=== PATIENT | female | born 1935 | race Caucasian/White ===

== ENCOUNTER → 2017-05-03 | Outpatient (CLI) | payer MEDICARE, OTHER ==
[~2017-05-03] VITALS: Ht 162.6 cm; Wt 90.7 kg
[~2017-05-03] MED LIST: ASPI-482 PO; LEVO112T4 PO; PROP15TA PO; REGADENOSON 0.4 MG/5 ML DISP.SYRIN. IV ONE; RIVA20TA2 PO; SIMV10TA3 PO
--- NOTE | 2017-05-03 10:29 | CARD ---
APPROVED REPORT EXAM: Two-dimensional and M-mode echocardiogram with Doppler and color Doppler. Other Information Quality : Good Rhythm : Atrial Fibrillation INDICATION Atrial Fibrillation 2D DIMENSIONS RVDd3.0 (2.9-3.5cm)Left Atrium(2D)3.9 (1.6-4.0cm) IVSd1.1 (0.7-1.1cm)Aortic Root(2D)3.1 (2.0-3.7cm) LVDd4.1 (3.9-5.9cm)LVOT Diameter2.1 (1.8-2.4cm) PWd1.1 (0.7-1.1cm)LVDs3.1 (2.5-4.0cm) FS (%) 24.9 %SV37.7 ml Aortic Valve AoV Peak Murray.115.4cm/sAoV VTI24.9cm AO Peak GR.5.3mmHgLVOT Peak Murray.67.8cm/s AO Mean GR.3mmHgAVA (VMAX)2.12cm2 Pulmonary Valve PV Peak Utpiccmj45.6cm/s Tricuspid Valve TR P. Ekcsllgn339mq/sTR Peak Gr.34mmHg Pulmonary Vein S1 Hmlhtllk61.8cm/s LEFT VENTRICLE The left ventricle is normal size. There is mild concentric left ventricular hypertrophy. The left ve ntricular systolic function is normal. The Ejection Fraction is 55%. Tissue Doppler assessment sugges ts moderate left ventricular diastolic dysfunction. RIGHT VENTRICLE The right ventricle is normal size. There is normal right ventricular wall thickness. The right ventr icular systolic function is normal. ATRIA The left atrium is mildly dilated. The right atrium size is normal. The interatrial septum is intact with no evidence for an atrial septal defect or patent foramen ovale as noted on 2-D or Doppler imagi ng. AORTIC VALVE The aortic valve is mildly sclerotic. The aortic valve is trileaflet. Doppler and Color Flow revealed no significant aortic regurgitation. There is no significant aortic valvular stenosis. MITRAL VALVE The mitral valve leaflets are thickened. Mild posterior mitral valve leaflet prolapse is present. The re is no mitral valve stenosis. Doppler and Color Flow revealed mild mitral regurgitation. TRICUSPID VALVE Doppler and Color Flow revealed mild tricuspid regurgitation. The pulmonary artery systolic pressure is estimated at 37 mmHg. There is mild pulmonary hypertension. PULMONIC VALVE Doppler and Color Flow revealed mild pulmonic valvular regurgitation. There is no pulmonic valvular s tenosis. GREAT VESSELS The aortic root is normal in size. The ascending aorta is normal in size. The pulmonary artery is nor mal. The IVC is normal in size and collapses >50% with inspiration. PERICARDIAL EFFUSION There is no evidence of significant pericardial effusion. Critical Notification Critical Value: No <Conclusion> The left ventricular systolic function is normal. The Ejection Fraction is 55%. The left atrium is mildly dilated. Mild posterior mitral valve leaflet prolapse is present. Mild mitral regurgitation. Mild tricuspid regurgitation. The pulmonary artery systolic pressure is estimated at 37 mmHg. There is no evidence of significant pericardial effusion.
--- NOTE | 2017-05-03 12:42 | RAD ---
APPROVED REPORT Test Type: Pharmacological Stress Nurse/Tech: Leidy Reyes R.N. Test Indications: afib Cardiac History: afib Medications: propranolol, asa, xarelto, simvastatin, levothyroxine Medical History: see ehr Resting ECG: afib Resting Heart Rate: 107 bpm Resting Blood Pressure: 136/83mmHg Pretest Chest Pain: No chest pain Nurse/Tech Notes lungs cta, heart tones irregular, good radial pulse Consent: The procedure was explained to the patient in lay terms. Informed consent was witnessed. Reynaldo eout was entered into [employer]. History and Stress Test performed by Leidy Reyes R.N. Pharm. Details Pharmacologic stress testing was performed using 0.4mg per 5ml of regadenoson given intravenously ove r 7-10 seconds. Stress Symptoms No chest pain or symptoms. POST EXERCISE Reason for Termination: Infusion complete Target HR: No Max HR: 136 bpm Max Blood Pressure: 137/73mmHg Chest Pain: No. Arrhythmia: Yes. afib cont throughout ST Change: No. INTERPRETATION Stress EKG Conclusion: No evidence of stress induced EKG changes. Imaging Protocol IMAGE PROTOCOL: Rest Tc-99m/stress Tc-99m 1 day Rest: Stress: Viability: Radiopharm.Tc99m LontktkiaRc34z Sestamibi Kexq88dZo 33mCi Duration 15min. 10min. Img Date 05/03/2017 05/03/2017 Inj-Img Diue34spj. 60min. Rest Admin Site:IV - Left AntecubitalAdministrator:Mariana Ann RT (R)(N) Stress Admin Site: IV - Left AntecubitalAdministrator: ABRAHAM HoyosTCSera, ARRT (R)(N) STRESS DATA End Diast. Vol.62.0mlAv. Heart Rate95.0bpm End Syst. Vol.26.0mlCO Index BSA0.0L/min Myocardial Aguu826.0gEject. Tertjavd38.0% Stress Rates Pk. Fill Rate3.41EDV/secLVtime Pk. Fill 165.25msec Pk. Empty Rate3.28ESV/secLVtime Pk. Eject93.85msec 11/20 Pk. Fill0.76EDV/sec Stress Scores Regional WT2.00Summed WT18.00 Regional WM0.00Summed WM5.00 The rest and stress images show normal perfusion, normal contraction and thickening. LV Perf. Quant 17 Seg. SSS2.00 17 Seg. SRS0.00 17 Seg. SDS2.00 Stress Defect Extent (% LAD)0.00Rest Defect Extent (% LAD)0.00Rev. Defect Extent (% LAD)0.00 Stress Defect Extent (% LCX) 7.50Rest Defect Extent (% LCX)0.00Rev. Defect Extent (% LCX)1.30 Stress Defect Extent (% RCA)0.00Rest Defect Extent (% RCA)0.00Rev. Defect Extent (% RCA)0.00 Stress Defect Extent (% THEA)1.30Rest Defect Extent (% THEA)0.00Rev. Defect Extent (% THEA)0.20 Other Information Quality:Good Risk Assessment: Low Risk Conclusion 1. No evidence of stress induced EKG changes. 2. Normal perfusion at stress/rest. 3. Low risk study. EF 58%
== END | disposition home or self-care (01) ==
LOC: NM 08:16
PROVIDERS: ATTEND Internal Medicine Cardiovascular Disease
DX: I48.91 Unspecified atrial fibrillation (principal); I08.1 Rheumatic disorders of both mitral and tricuspid valves; I27.2 Other secondary pulmonary hypertension
CPT/HCPCS: 78452; 93017; 93306; 96374; 96375; 96376; A9500; J2785

== ENCOUNTER → 2017-08-05 | Outpatient (CLI) | payer MEDICARE, OTHER ==
[~2017-08-05] MED LIST changes: -REGADENOSON 0.4 MG/5 ML DISP.SYRIN. IV ONE
--- NOTE | 2017-08-05 17:05 | RESP ---
DATE OF SERVICE: 08/05/2017 NAME OF STUDY: PFT. ATTENDING PHYSICIAN: Dr. Fong. DATE OF STUDY: 08/05/2017. FINDINGS: The patient's FVC was 1.9, which is 73% predicted; FEV1 1.20, which is 62% predicted. The FEV1/FVC ratio was reduced. There was 13% improvement in FEV1 post-bronchodilator, but not significant improvement with FVC or FEV1/FVC ratio. Lung volumes showed increased total lung capacity, 178% predicted; residual volume 308% predicted. Diffusion capacity normal. IMPRESSION: 1. Mild obstructive airway disease. 2. No significant response to bronchodilators. 3. Lung volumes consistent with hyperinflation and air trapping. 4. Normal diffusion capacity. JOSE DELGADO MD DR: BEBE/miguel JOB#: [id number] / [id number]
== END | disposition home or self-care (01) ==
LOC: PF 08:45
PROVIDERS: ATTEND Internal Medicine Cardiovascular Disease
DX: J98.8 Other specified respiratory disorders (principal)
CPT/HCPCS: 94060; 94729

== ENCOUNTER 2019-02-11 16:06 | Inpatient (IN) | payer MEDICARE, OTHER ==
[~2019-02-11] VITALS: Ht 162.6 cm; Wt 88.7 kg
[2019-02-11 17:11] LABS: BASO % 1 % (0-3); EOS # 0.1 x10^3/uL (0.0-0.7); EOS % 2 % (0-3); HEMATOCRIT 42.1 % (36.0-47.0); HEMOGLOBIN 14.1 g/dL (12.0-15.5); LYMPH # 1.6 x10^3/uL (1.0-4.8); LYMPH % 24 % (24-48); MEAN CORPUSCULAR HEMOGLOBIN 32 pg (25-35); MEAN CORPUSCULAR HGB CONC 33 g/dL (31-37); MEAN CORPUSCULAR VOLUME 97 fL (79-100); MONO # 0.6 x10^3/uL (0.0-1.1); MONO % 9 % (0-9); NEUT # 4.2 x10^3uL (1.8-7.7); NEUT % 64 % (31-73); PLATELET COUNT 142 x10^3/uL (140-400); RED BLOOD COUNT 4.34 x10^6/uL (3.50-5.40); RED CELL DISTRIBUTION WIDTH 14.3 % (11.5-14.5); WHITE BLOOD COUNT 6.6 x10^3/uL (4.0-11.0)
[2019-02-11 17:24] LABS: CALCIUM 8.7 mg/dL (8.5-10.1); CREATININE 1.1 mg/dL (0.6-1.0); GFR 47.3; POTASSIUM 4.1 mmol/L (3.5-5.1)
[2019-02-11 17:30] LABS: ALBUMIN/GLOBULIN RATIO 0.8 (1.0-1.7); MAGNESIUM 2.1 mg/dL (1.8-2.4); TOTAL BILIRUBIN 0.5 mg/dL (0.2-1.0)
[2019-02-11 17:34] LABS: INFLUENZA A PATIENT POSITIVE (NEGATIVE); INFLUENZA B PATIENT NEGATIVE (NEGATIVE)
[2019-02-11] MEDS: OSELTAMIVIR 30 MG CAPSULE PO SCH (17:44)
[2019-02-11 18:02] LABS: BILIRUBIN,URINE NEGATIVE (NEG); CLARITY,URINE CLEAR; COLOR,URINE YELLOW; NITRITE,URINE NEGATIVE (NEG); PH,URINE 5.5; PROTEIN,URINE NEGATIVE (NEG-TRACE); UROBILINOGEN,URINE 0.2 mg/dL (0.2 mg/dL)
[2019-02-11 18:15] LABS: BACTERIA,URINE FEW /HPF (0-FEW); RBC,URINE OCC /HPF (0-2); SQUAMOUS EPITHELIAL CELL,UR FEW /LPF
[2019-02-11] MEDS ORDERED: cefTRIAXone IV Push 1 GM VIAL. IVP ONE (19:30)
[2019-02-11] MEDS ORDERED: ACETAMINOPHEN 325 MG TABLET. PO PRN ×2 (19:30→21:00)
[2019-02-11 19:43] VITALS: BP 143/86
--- NOTE | 2019-02-11 19:52 | PHYS DOC ---
Past Medical History Past Medical History: A-Fib, High Cholesterol, Hypothyroid, Other Additional Past Medical Histor: OSTEOPENIA Past Surgical History: Cholecystectomy, Hysterectomy Alcohol Use: None Drug Use: None Adult General Chief Complaint Chief Complaint: SHORTNESS OF BREATH HPI HPI 83-year-old female presents to ER via POV with complaints of shortness of air for the past 2 days. Patient states she has had cold-like symptoms since Saturday and has been gradually becoming more weak. She reports her appetite has been down and she has had less fluid intake. Patient denies fever. Patient was sent to the ER by her primary care physician's office as she had been there getting evaluated. They had taken a chest x-ray and told patient had concerns for questionable CHF-they sent a CD of the chest x-ray which was taken to radiology for possible upload of images. Patient denies history of this. Patient states she does have history of A. fib and is on daily Xarelto. Patient denies any chest pain or palpitations. Patient reports she has chronic lower extremity swelling denies acute changes. Patient denies urinary symptoms. Patient denies recent falls or injury. She denies any recent travel. Review of Systems Review of Systems Constitutional: Denies fever or chills. Reports gen. fatigue/weakness Eyes: Denies change in visual acuity, redness, or eye pain [] HENT: Reports sore throat and sinus congestion Respiratory: Reports nonprod. cough and SOA Cardiovascular: Denies chest pain or palpitations GI: Denies abdominal pain, nausea, vomiting, bloody stools or diarrhea [] : Denies dysuria or hematuria [] Musculoskeletal: Denies back/neck pain or joint pain [] Integument: Denies rash or skin lesions [] Neurologic: Denies headache, focal weakness or sensory changes [] Endocrine: Denies polyuria or polydipsia [] All other systems were reviewed and found to be within normal limits, except as documented in this note. Allergies Allergies Allergies Coded Allergies Type Severity Reaction Last Updated Verified No Known Drug Allergies 05/03/17 No Physical Exam Physical Exam Constitutional: Well developed, well nourished, no acute distress, non-toxic appearance. Fatigued appearance. Clear speech HENT: Normocephalic, atraumatic, bilateral ears normal, mucous membranes- no pharyngeal swelling mild erythema- uvula midline, no oral exudates, nose normal. [] Eyes: Pupils equal, conjunctiva normal, no discharge. [] Neck: Normal range of motion, no tenderness, supple, no stridor. Trachea midline Cardiovascular:Heart rate regular rhythm, no murmur [] Lungs & Thorax: Expiratory wheezing rt upper lobe and in upper airway- diminished in bases. Resp. equal/nonlabored. Speaking in full sentences Abdomen: Bowel sounds normal, soft/obese- no rigidity/distention, no tenderness , no masses, no pulsatile masses. [] Skin: Warm, dry, no erythema, no rash. [] Back: No tenderness, no CVA tenderness. [] Extremities: No tenderness, no cyanosis, no clubbing, ROM intact, 2+ bilat. LE edema without pitting- no calf tenderness bilat. w/symmetric size Neurologic: Alert and oriented X 3, normal motor function, normal sensory function, no focal deficits noted. [] Psychologic: Affect normal, judgement normal, mood normal. [] Current Patient Data Vital Signs Vital Signs Date Time Temp Pulse Resp B/P (MAP) Pulse Ox O2 Delivery O2 Flow Rate FiO2 02/11/19 17:11 104 149/88 (108) 94 Room Air 02/11/19 16:35 98.2 22 98.2 Lab Values Laboratory Tests Test 02/11/19 16:40 02/11/19 17:00 White Blood Count 6.6 x10^3/uL (4.0-11.0) Red Blood Count 4.34 x10^6/uL (3.50-5.40) Hemoglobin 14.1 g/dL (12.0-15.5) Hematocrit 42.1 % (36.0-47.0) Mean Corpuscular Volume 97 fL (79-100) Mean Corpuscular Hemoglobin 32 pg (25-35) Mean Corpuscular Hemoglobin Concent 33 g/dL (31-37) Red Cell Distribution Width 14.3 % (11.5-14.5) Platelet Count 142 x10^3/uL (140-400) Neutrophils (%) (Auto) 64 % (31-73) Lymphocytes (%) (Auto) 24 % (24-48) Monocytes (%) (Auto) 9 % (0-9) Eosinophils (%) (Auto) 2 % (0-3) Basophils (%) (Auto) 1 % (0-3) Neutrophils # (Auto) 4.2 x10^3uL (1.8-7.7) Lymphocytes # (Auto) 1.6 x10^3/uL (1.0-4.8) Monocytes # (Auto) 0.6 x10^3/uL (0.0-1.1) Eosinophils # (Auto) 0.1 x10^3/uL (0.0-0.7) Basophils # (Auto) 0.0 x10^3/uL (0.0-0.2) Sodium Level 140 mmol/L (136-145) Potassium Level 4.1 mmol/L (3.5-5.1) Chloride Level 103 mmol/L (98-107) Carbon Dioxide Level 30 mmol/L (21-32) Anion Gap 7 (6-14) Blood Urea Nitrogen 14 mg/dL (7-20) Creatinine 1.1 mg/dL (0.6-1.0) H Estimated GFR (Cockcroft-Gault) 47.3 BUN/Creatinine Ratio 13 (6-20) Glucose Level 111 mg/dL (70-99) H Lactic Acid Level 0.9 mmol/L (0.4-2.0) Calcium Level 8.7 mg/dL (8.5-10.1) Magnesium Level 2.1 mg/dL (1.8-2.4) Total Bilirubin 0.5 mg/dL (0.2-1.0) Aspartate Amino Transferase (AST) 15 U/L (15-37) Alanine Aminotransferase (ALT) 14 U/L (14-59) Alkaline Phosphatase 74 U/L (46-116) Troponin I Quantitative < 0.017 ng/mL (0.000-0.055) RU-Xhv-F-Type Natriuretic Peptide 1959 pg/mL (0-449) H Total Protein 7.0 g/dL (6.4-8.2) Albumin 3.0 g/dL (3.4-5.0) L Albumin/Globulin Ratio 0.8 (1.0-1.7) L Influenza Type A Antigen Positive (NEGATIVE) Influenza Type B Antigen Negative (NEGATIVE) Laboratory Tests 02/11/19 16:40 Laboratory Tests 02/11/19 16:40 EKG EKG EKG obtained 02/11/19 at 1649 Interpreted by ER physician AFib RVR Nonspec. ST/T wave changes No STEMI Radiology/Procedures Radiology/Procedures [] Course & Med Decision Making Course & Med Decision Making Pertinent Labs and Imaging studies reviewed. (See chart for details) Dr. Gama, ER physician viewed patient's chest x-ray which was uploaded with no obvious findings for infiltrate or congestion. This was discussed with pt and her son. Pt had positive Flu A test so she was started on Tamiflu. EKG with no acute ST elevation/STEMI and troponin was <0.017. Patient was given 500 mL normal saline while in the ER. Patient initial heart rate was elevated however at time of admission heart rate was down to 85-90 remained irregular. Will admit to hospitalist for further care and monitoring to med/tele floor. Pt remains fatigued in appearance at time of discussion on admission but is in no visible distress. 1710: Spoke with hospitalist Dr. Griffin and discussed patient's case and admission plan. UA results with mod. leuks and so dose of IV Rocephin was ordered. Dragon Disclaimer Dragon Disclaimer This electronic medical record was generated, in whole or in part, using a voice recognition dictation system. Departure Departure Impression: Primary Impression: Shortness of breath Additional Impressions: Influenza A Weakness UTI (urinary tract infection) Disposition: ADMITTED INPATIENT Admitting Physician: Antonio Griffin Condition: STABLE Referrals: ANTHONY GUIDRY MD (PCP) Scripts Cetirizine Hcl (CETIRIZINE HCL) 10 Mg Tablet 1 TAB PO DAILY for congestion, #7 TAB 5 Refills Prov: VENKATESH MCKENNA MD 02/12/19 Fluticasone Propionate (Flonase Allergy Relief) 9.9 Ml [place].susp 2 SPRAYS NS DAILY for congestion for 7 Days, BOTTLE Prov: VENKATESH MCKENNA MD 02/12/19 Guaifenesin (MUCINEX) 600 Mg Tablet.er 600 MG PO BID for cough MDD 1, #14 TAB.SR Prov: VENKATESH MCKENNA MD 02/12/19 Oseltamivir Phosphate (TAMIFLU) 30 Mg Capsule 30 MG PO BID for flu A MDD 1, #10 CAP Prov: VENKATESH MCKENNA MD 02/12/19 Problem Qualifiers MYCHAL FU APRN Feb 11, 2019 19:52
[2019-02-11] MEDS ORDERED: ENOXAPARIN 40 MG/0.4 ML SYRINGE. SQ SCH (20:00)
[2019-02-11] MEDS ORDERED: CALC625T12 PO (20:55)
[2019-02-11] MEDS ORDERED: ACET325T9 PO (20:55)
[2019-02-11] MEDS ORDERED: PROP120C48 PO (20:55)
[2019-02-11] MEDS ORDERED: CHOL500051 PO (20:55)
[2019-02-11] MEDS ORDERED: SIMVASTATIN 10 MG TABLET PO SCH (21:00)
[2019-02-11] MEDS ORDERED: RIVAROXABAN 15 MG TABLET. PO SCH (21:30)
--- NOTE | 2019-02-11 21:42 | HP ---
ADMIT DATE: 02/11/2019 CHIEF COMPLAINT: Shortness of breath. HISTORY OF PRESENT ILLNESS: The patient is a pleasant 83-year-old female who presents to the ER with shortness of breath, been occurring for several days. She has associated weakness and cold-like symptoms with achiness, becoming more weak. Her appetite is down. She tried taking some home meds that did not seem to work. She was sent to the ER by her primary care doctor's office because they have taken a chest x-ray and were concerning she could have some heart failure as well. While in the ER, we checked her for flu and she is positive for influenza A. She also has a UTI with moderate leukocyte esterase on her urinalysis. I discussed the case with ER physician and we are going to admit the patient and give her fluids and Tamiflu and IV antibiotics. PAST MEDICAL HISTORY: Chronic anticoagulation, AFib, hyperlipidemia, hypothyroidism, osteopenia, cholecystectomy and hysterectomy. ALLERGIES: None. FAMILY HISTORY: Hypertension. SOCIAL HISTORY: She does not drink, smoke or take drugs. She is retired. MEDICATIONS: Reviewed, please refer to the MRAD. She is on 5 home medications including Xarelto, simvastatin, aspirin, Synthroid and fayw-tzb-lcvfuem meds. REVIEW OF SYSTEMS: GENERAL: No history of weight change, weakness or fevers. SKIN: No bruising, hair changes or rashes. EYES: No blurred, double or loss of vision. NOSE AND THROAT: No history of nosebleeds, hoarseness or sore throat. HEART: No history of palpitations, chest pain or shortness of breath on exertion. PULMONARY: She complains of shortness of breath. GASTROINTESTINAL: Denies changes in appetite, nausea, vomiting, diarrhea or constipation. GENITOURINARY: No history of frequency, urgency, hesitancy or nocturia. NEUROLOGIC: Denies history of numbness, tingling, tremor or weakness. PSYCHIATRIC: No history of panic, anxiety or depression. ENDOCRINE: No history of heat or cold intolerance, polyuria or polydipsia. EXTREMITIES: Denies muscle weakness, joint pain, pain on walking or stiffness. PHYSICAL EXAMINATION: VITAL SIGNS: Temperature is afebrile, pulse 98, respirations 18 and blood pressure 143/86. GENERAL: She is alert, cooperative and very weak. HEART: Normal S1 and S2. LUNGS: Slight crackles. ABDOMEN: Soft and obese. EXTREMITIES: 1+ edema. SKIN: No rashes. ENDOCRINE: No thyromegaly. LYMPHATICS: No cervical nodes. HEMATOPOIETIC: No bruising. PSYCHIATRIC: She is stable. LABORATORY DATA: Hematology is normal. Electrolytes are normal. BNP is high as 1959. RADIOLOGICAL DATA: Chest x-ray is pending. ASSESSMENT AND PLAN: Influenza and probable rphog-kl-mncffrm systolic and diastolic heart failure and urinary tract infection. The patient has been admitted. We will start Tamiflu and IV Levaquin and IV fluids. Consult Cardiology. Home medications. Deep venous thrombosis prophylaxis, PHYSICAL therapy, occupational therapy and frequent labs. Prognosis is guarded. JOELLE BURR DO DR: LORENA/miguel JOB#: [id number] / [id number]
[2019-02-11] MEDS: IPRATRPIUM/ALBUTEROL 0.5/2.5MG 3 ML NEBU. NEB SCH (22:17)
[2019-02-11] MEDS: BENZONATATE 100 MG CAPSULE. PO SCH (22:44)
[2019-02-11 23:03] VITALS: BP 127/85
[2019-02-12 03:11] VITALS: BP 134/72
[2019-02-12 05:22] LABS: BASO % 1 % (0-3); EOS # 0.1 x10^3/uL (0.0-0.7); EOS % 2 % (0-3); HEMATOCRIT 38.1 % (36.0-47.0); HEMOGLOBIN 12.8 g/dL (12.0-15.5); LYMPH # 1.3 x10^3/uL (1.0-4.8); LYMPH % 27 % (24-48); MEAN CORPUSCULAR HEMOGLOBIN 32 pg (25-35); MEAN CORPUSCULAR HGB CONC 34 g/dL (31-37); MEAN CORPUSCULAR VOLUME 97 fL (79-100); MONO # 0.5 x10^3/uL (0.0-1.1); MONO % 10 % (0-9); NEUT % 62 % (31-73); PLATELET COUNT 128 x10^3/uL (140-400); RED BLOOD COUNT 3.94 x10^6/uL (3.50-5.40); RED CELL DISTRIBUTION WIDTH 14.3 % (11.5-14.5); WHITE BLOOD COUNT 4.9 x10^3/uL (4.0-11.0)
[2019-02-12 07:00] VITALS: BP 129/73
[2019-02-12] MEDS ORDERED: LEVOTHYROXINE 112 MCG TABLET PO SCH (07:00)
[2019-02-12] MEDS: IPRATRPIUM/ALBUTEROL 0.5/2.5MG 3 ML NEBU. NEB SCH ×3 (08:15→16:59)
[2019-02-12] MEDS ORDERED: ONDANSETRON ODT 4 MG TAB.RAPDIS. PO PRN (08:45)
[2019-02-12] MEDS ORDERED: ONDANSETRON PF 4 MG/2 ML VIAL. IV PRN (08:45)
[2019-02-12] MEDS ORDERED: ACETAMINOPHEN 500 MG TABLET PO PRN (08:45)
[2019-02-12] MEDS ORDERED: CALCIUM POLYCARBOPHIL 625 MG TABLET PO SCH (09:00)
[2019-02-12] MEDS ORDERED: PROPRANOLOL ER 80 MG CAP.ER.24H. PO SCH (09:00)
[2019-02-12] MEDS ORDERED: CHOLECALCIFEROL (VITAMIN D3) 5,000 UNIT CAPSULE PO SCH (09:00)
--- NOTE | 2019-02-12 09:13 | EKG ---
[facility] [address] [place] [address] Test Date: 2019-02-11 Test Time: 16:49:04 Pat Name: KAYLYN TOMAS Department: Room: 536 1 Gender: Nightman: : 1935 Requested By: MYCHAL FU Order Number: [id number] Reading MD: Gustavo Fong MD Measurements Intervals [place] Rate: P: SD: QRS: QRSD: T: QT: QTc: Interpretive Statements ATRIAL FIBRILLATION WITH RVR NON-SPECIFIC ST/T CHANGES Electronically Signed On 02-12-2019 15:14:26 CDT by Gustavo Fong MD
[2019-02-12] MEDS: OSELTAMIVIR 30 MG CAPSULE PO SCH (09:23)
--- NOTE | 2019-02-12 09:36 | NUR ---
IP: Pt is influenza + requiring droplet precautions for 5 days and 24 hours without a fever, whichever is longest.
[2019-02-12] MEDS: BENZONATATE 100 MG CAPSULE. PO SCH ×2 (09:50→13:30)
[2019-02-12 11:00] VITALS: BP 130/67
--- NOTE | 2019-02-12 11:03 | PDOC ---
Infectious Disease Note Vital Signs: Vital Signs Vital Signs Date Time Temp Pulse Resp B/P (MAP) Pulse Ox O2 Delivery O2 Flow Rate FiO2 02/12/19 09:26 87 129/73 02/12/19 08:15 97 Room Air 02/12/19 07:00 98.8 20 98.8 Medications: Inpatient Meds: Current Medications Medications (Trade) Dose Ordered Sig/Radha Start Time Stop Time Status Last Admin Dose Admin Acetaminophen (Tylenol) 500 mg PRN Q6HRS PRN 02/12/19 08:45 Albuterol/ Ipratropium (Duoneb) 3 ml RTQID 02/11/19 20:00 02/12/19 19:59 02/12/19 08:15 3 ML Benzonatate (Tessalon Perle) 100 mg [id number] 02/11/19 22:30 02/12/19 09:50 100 MG Calcium Polycarbophil (Fibercon) 625 mg DAILY 02/12/19 09:00 02/12/19 09:24 625 MG Ceftriaxone Sodium (Rocephin) 1 gm 1X ONCE 02/11/19 19:30 02/11/19 19:31 UNV Enoxaparin Sodium (Lovenox 40mg Syringe) 40 mg Q24H 02/11/19 20:00 02/11/19 21:01 DC Guaifenesin (Mucinex) 600 mg BID 02/11/19 22:30 02/12/19 09:23 600 MG Levofloxacin/ Dextrose 50 ml @ 50 mls/hr Q24H 02/12/19 20:00 Levothyroxine Sodium (Synthroid) 112 mcg DAILY07 02/12/19 07:00 02/12/19 06:43 112 MCG Ondansetron HCl (Zofran Odt) 4 mg PRN Q6HRS PRN 02/12/19 08:45 Ondansetron HCl (Zofran) 4 mg PRN Q6HRS PRN 02/12/19 08:45 Oseltamivir Phosphate (Tamiflu) 30 mg BID 02/11/19 18:00 02/16/19 17:59 02/12/19 09:23 30 MG Propranolol HCl (Inderal La) 240 mg DAILY 02/12/19 09:00 02/12/19 09:26 160 MG Rivaroxaban (Xarelto) 15 mg DAILYWSUP 02/11/19 21:30 02/11/19 22:45 15 MG Simvastatin (Zocor) 10 mg QHS 02/11/19 21:00 02/11/19 22:44 10 MG Vitamin D (Vitamin D3) 5,000 unit DAILY 02/12/19 09:00 02/12/19 09:23 5,000 UNIT Labs: Lab Laboratory Tests Test 02/11/19 16:40 02/11/19 17:00 02/11/19 17:50 02/12/19 04:33 White Blood Count 6.6 x10^3/uL (4.0-11.0) 4.9 x10^3/uL (4.0-11.0) Red Blood Count 4.34 x10^6/uL (3.50-5.40) 3.94 x10^6/uL (3.50-5.40) Hemoglobin 14.1 g/dL (12.0-15.5) 12.8 g/dL (12.0-15.5) Hematocrit 42.1 % (36.0-47.0) 38.1 % (36.0-47.0) Mean Corpuscular Volume 97 fL (79-100) 97 fL (79-100) Mean Corpuscular Hemoglobin 32 pg (25-35) 32 pg (25-35) Mean Corpuscular Hemoglobin Concent 33 g/dL (31-37) 34 g/dL (31-37) Red Cell Distribution Width 14.3 % (11.5-14.5) 14.3 % (11.5-14.5) Platelet Count 142 x10^3/uL (140-400) 128 x10^3/uL (140-400) Neutrophils (%) (Auto) 64 % (31-73) 62 % (31-73) Lymphocytes (%) (Auto) 24 % (24-48) 27 % (24-48) Monocytes (%) (Auto) 9 % (0-9) 10 % (0-9) Eosinophils (%) (Auto) 2 % (0-3) 2 % (0-3) Basophils (%) (Auto) 1 % (0-3) 1 % (0-3) Neutrophils # (Auto) 4.2 x10^3uL (1.8-7.7) 3.0 x10^3uL (1.8-7.7) Lymphocytes # (Auto) 1.6 x10^3/uL (1.0-4.8) 1.3 x10^3/uL (1.0-4.8) Monocytes # (Auto) 0.6 x10^3/uL (0.0-1.1) 0.5 x10^3/uL (0.0-1.1) Eosinophils # (Auto) 0.1 x10^3/uL (0.0-0.7) 0.1 x10^3/uL (0.0-0.7) Basophils # (Auto) 0.0 x10^3/uL (0.0-0.2) 0.0 x10^3/uL (0.0-0.2) Sodium Level 140 mmol/L (136-145) Potassium Level 4.1 mmol/L (3.5-5.1) Chloride Level 103 mmol/L (98-107) Carbon Dioxide Level 30 mmol/L (21-32) Anion Gap 7 (6-14) Blood Urea Nitrogen 14 mg/dL (7-20) Creatinine 1.1 mg/dL (0.6-1.0) Estimated GFR (Cockcroft-Gault) 47.3 BUN/Creatinine Ratio 13 (6-20) Glucose Level 111 mg/dL (70-99) Lactic Acid Level 0.9 mmol/L (0.4-2.0) Calcium Level 8.7 mg/dL (8.5-10.1) Magnesium Level 2.1 mg/dL (1.8-2.4) Total Bilirubin 0.5 mg/dL (0.2-1.0) Aspartate Amino Transf (AST/SGOT) 15 U/L (15-37) Alanine Aminotransferase (ALT/SGPT) 14 U/L (14-59) Alkaline Phosphatase 74 U/L (46-116) Troponin I Quantitative < 0.017 ng/mL (0.000-0.055) CP-Qrm-C-Type Natriuretic Peptide 1959 pg/mL (0-449) Total Protein 7.0 g/dL (6.4-8.2) Albumin 3.0 g/dL (3.4-5.0) Albumin/Globulin Ratio 0.8 (1.0-1.7) Influenza Type A Antigen Positive (NEGATIVE) Influenza Type B Antigen Negative (NEGATIVE) Urine Collection Type Unknown Urine Color Yellow Urine Clarity Clear Urine pH 5.5 Urine Specific [place] 1.020 Urine Protein Negative mg/dL (NEG-TRACE) Urine Glucose (UA) Negative mg/dL (NEG) Urine Ketones (Stick) Negative mg/dL (NEG) Urine Blood Small (NEG) Urine Nitrite Negative (NEG) Urine Bilirubin Negative (NEG) Urine Urobilinogen Dipstick 0.2 mg/dL (0.2 mg/dL) Urine Leukocyte Esterase Moderate (NEG) Urine RBC Occ /HPF (0-2) Urine WBC 1-4 /HPF (0-4) Urine Squamous Epithelial Cells Few /LPF Urine Bacteria Few /HPF (0-FEW) Urine Mucus Marked /LPF Objective: Assessment: Influenza A Mild CHF Plan: Plan of Care cont tamiflu DC Levaquin Patient is eager for discharge home today OK to dc home from ID standpoint D/W son and daughter at bedside Discussed with RN Thank you Dictated [id number] ELLI ALFRED MD Feb 12, 2019 11:03
--- NOTE | 2019-02-12 12:03 | PDOC2 ---
KENTON SINGH REHAB MANAGER 02/12/19 1203: CARDIAC CONSULT DATE OF CONSULT Date of Consult DATE: 02/12/19 TIME: 11:34 REASON FOR CONSULT Reason for Consult: CHF REFERRING PHYSICIAN Referring Physician: Gaby SOURCE Source: Chart review, Patient HISTORY OF PRESENT ILLNESS HISTORY OF PRESENT ILLNESS This is a pleasant 83 yo female admitted for complains of SOA and nasal congestion. She has been having nasal congestion, sore throat and SOA since Saturday. Mainly she has not been able to sleep well due to her cough and cold. No orthopnea nor leg swelling. No complains of chest pain, palpitations, nausea or vomiting. She does have AFIB and takes propranolol and xarelto. PAST MEDICAL HISTORY Cardiovascular: AFIB, HTN, Hyperlipidemia Pulmonary: No pertinent hx CENTRAL NERVOUS SYSTEM: Migraine GI: No pertinent hx Heme/Onc: No pertinent hx Musculoskeletal: Osteoarthritis Endocrine: Hypothyroidism PAST SURGICAL HISTORY Past Surgical History: Cholecystectomy, Hysterectomy, Other (hemorrhoidectomy; vein stripping) FAMILY HISTORY Family History noncontributory to CV SOCIAL HISTORY Smoke: No ALCOHOL: none Lives: with Family CURRENT MEDICATIONS CURRENT MEDICATIONS Current Medications Medications (Trade) Dose Ordered Sig/Radha Route PRN Reason Start Time Stop Time Status Last Admin Dose Admin Oseltamivir Phosphate (Tamiflu) 30 mg BID PO 02/11/19 18:00 02/16/19 17:59 02/12/19 09:23 Levofloxacin/ Dextrose 100 ml @ 100 mls/hr 1X ONCE IV 02/11/19 20:00 02/11/19 21:00 DC 02/11/19 20:41 Albuterol/ Ipratropium (Duoneb) 3 ml RTQID NEB 02/11/19 20:00 02/12/19 19:59 02/12/19 08:15 Calcium Polycarbophil (Fibercon) 625 mg DAILY PO 02/12/19 09:00 02/12/19 09:24 Vitamin D (Vitamin D3) 5,000 unit DAILY PO 02/12/19 09:00 02/12/19 09:23 Levothyroxine Sodium (Synthroid) 112 mcg DAILY07 PO 02/12/19 07:00 02/12/19 06:43 Simvastatin (Zocor) 10 mg QHS PO 02/11/19 21:00 02/11/19 22:44 Propranolol HCl (Inderal La) 240 mg DAILY PO 02/12/19 09:00 02/12/19 09:26 Rivaroxaban (Xarelto) 15 mg DAILYWSUP PO 02/11/19 21:30 02/11/19 22:45 Benzonatate (Tessalon Perle) 100 mg [id number] PO 02/11/19 22:30 02/12/19 09:50 Guaifenesin (Mucinex) 600 mg BID PO 02/11/19 22:30 02/12/19 09:23 ALLERGIES ALLERGIES: Coded Allergies: No Known Drug Allergies (Unverified , 05/03/17) ROS Review of System 14 point ROS evaluated with pertinent positives noted per HPI PHYSICAL EXAM General: Alert, Oriented X3, Cooperative, No acute distress HEENT: Atraumatic, Mucous membr. moist/pink, Other (nasal congestion) Lungs: Clear to auscultation, Normal air movement Heart: Other (AFIB; 2/6 systolic murmur to LLS border) Abdomen: Soft, No tenderness Extremities: No cyanosis, Other (trace LE edema) Skin: No breakdown, No significant lesion Neuro: Normal speech, Sensation intact Psych/Mental Status: Mental status NL, Mood NL MUSCULOSKELETAL: Osteoarthritic changes both hands VITALS VITALS Vital Signs Date Time Temp Pulse Resp B/P (MAP) Pulse Ox O2 Delivery O2 Flow Rate FiO2 02/12/19 11:00 98.4 88 20 130/67 (88) 96 Room Air 98.4 LABS Lab: Laboratory Tests Test 02/11/19 16:40 02/11/19 17:00 02/11/19 17:50 02/12/19 04:33 White Blood Count 6.6 x10^3/uL (4.0-11.0) 4.9 x10^3/uL (4.0-11.0) Red Blood Count 4.34 x10^6/uL (3.50-5.40) 3.94 x10^6/uL (3.50-5.40) Hemoglobin 14.1 g/dL (12.0-15.5) 12.8 g/dL (12.0-15.5) Hematocrit 42.1 % (36.0-47.0) 38.1 % (36.0-47.0) Mean Corpuscular Volume 97 fL (79-100) 97 fL (79-100) Mean Corpuscular Hemoglobin 32 pg (25-35) 32 pg (25-35) Mean Corpuscular Hemoglobin Concent 33 g/dL (31-37) 34 g/dL (31-37) Red Cell Distribution Width 14.3 % (11.5-14.5) 14.3 % (11.5-14.5) Platelet Count 142 x10^3/uL (140-400) 128 x10^3/uL (140-400) Neutrophils (%) (Auto) 64 % (31-73) 62 % (31-73) Lymphocytes (%) (Auto) 24 % (24-48) 27 % (24-48) Monocytes (%) (Auto) 9 % (0-9) 10 % (0-9) Eosinophils (%) (Auto) 2 % (0-3) 2 % (0-3) Basophils (%) (Auto) 1 % (0-3) 1 % (0-3) Neutrophils # (Auto) 4.2 x10^3uL (1.8-7.7) 3.0 x10^3uL (1.8-7.7) Lymphocytes # (Auto) 1.6 x10^3/uL (1.0-4.8) 1.3 x10^3/uL (1.0-4.8) Monocytes # (Auto) 0.6 x10^3/uL (0.0-1.1) 0.5 x10^3/uL (0.0-1.1) Eosinophils # (Auto) 0.1 x10^3/uL (0.0-0.7) 0.1 x10^3/uL (0.0-0.7) Basophils # (Auto) 0.0 x10^3/uL (0.0-0.2) 0.0 x10^3/uL (0.0-0.2) Sodium Level 140 mmol/L (136-145) Potassium Level 4.1 mmol/L (3.5-5.1) Chloride Level 103 mmol/L (98-107) Carbon Dioxide Level 30 mmol/L (21-32) Anion Gap 7 (6-14) Blood Urea Nitrogen 14 mg/dL (7-20) Creatinine 1.1 mg/dL (0.6-1.0) Estimated GFR (Cockcroft-Gault) 47.3 BUN/Creatinine Ratio 13 (6-20) Glucose Level 111 mg/dL (70-99) Lactic Acid Level 0.9 mmol/L (0.4-2.0) Calcium Level 8.7 mg/dL (8.5-10.1) Magnesium Level 2.1 mg/dL (1.8-2.4) Total Bilirubin 0.5 mg/dL (0.2-1.0) Aspartate Amino Transf (AST/SGOT) 15 U/L (15-37) Alanine Aminotransferase (ALT/SGPT) 14 U/L (14-59) Alkaline Phosphatase 74 U/L (46-116) Troponin I Quantitative < 0.017 ng/mL (0.000-0.055) ES-Tdz-A-Type Natriuretic Peptide 1959 pg/mL (0-449) Total Protein 7.0 g/dL (6.4-8.2) Albumin 3.0 g/dL (3.4-5.0) Albumin/Globulin Ratio 0.8 (1.0-1.7) Influenza Type A Antigen Positive (NEGATIVE) Influenza Type B Antigen Negative (NEGATIVE) Urine Collection Type Unknown Urine Color Yellow Urine Clarity Clear Urine pH 5.5 Urine Specific [place] 1.020 Urine Protein Negative mg/dL (NEG-TRACE) Urine Glucose (UA) Negative mg/dL (NEG) Urine Ketones (Stick) Negative mg/dL (NEG) Urine Blood Small (NEG) Urine Nitrite Negative (NEG) Urine Bilirubin Negative (NEG) Urine Urobilinogen Dipstick 0.2 mg/dL (0.2 mg/dL) Urine Leukocyte Esterase Moderate (NEG) Urine RBC Occ /HPF (0-2) Urine WBC 1-4 /HPF (0-4) Urine Squamous Epithelial Cells Few /LPF Urine Bacteria Few /HPF (0-FEW) Urine Mucus Marked /LPF ECHOCARDIOGRAM ECHOCARDIOGRAM <Conclusion> The left ventricular systolic function is normal. The Ejection Fraction is 55%. The left atrium is mildly dilated. Mild posterior mitral valve leaflet prolapse is present. Mild mitral regurgitation. Mild tricuspid regurgitation. The pulmonary artery systolic pressure is estimated at 37 mmHg. There is no evidence of significant pericardial effusion. DATE: 05/03/17 1028 STRESS TEST STRESS TEST Conclusion 1. No evidence of stress induced EKG changes. 2. Normal perfusion at stress/rest. 3. Low risk study. EF 58% DATE: 05/03/17 1242 ASSESSMENT/PLAN ASSESSMENT/PLAN 1. URI/Flu: ID following 2. Chronic AFIB: rate controlled. intermittent bursts otherwise 90-110 currently 3. MVP 4. Mild diastolic CHF: compensated 5. Hx of migraine 6. Hypothyroidism Recommendations 1. F/u TTE pending. 2. Discussed compliance with current propranolol dosing. Xarelto for stroke prevention 3. Follow up in office as scheduled 4. Discussed symptoms of CHF and palpitations and when to call. 5. Check TSH and Lipids 6. Dig IV 250 mcg x1. If HR remains at upper end then may add Dig PO as her BP may not be able to tolerate increasing Propranolol GISSELLE MOTT MD 02/12/197: CARDIAC CONSULT ASSESSMENT/PLAN ASSESSMENT/PLAN Pt. seen and examined. Agree with above Sawmilling Operator note. Echo wnl. Supportive care. KENTON SINGH APRN Feb 12, 2019 12:03 GISSELLE MOTT MD Feb 12, 2019 22:07
[2019-02-12 12:06] LABS: CHOLESTEROL/HDL RATIO 3.3
[2019-02-12] MEDS ORDERED: GUAI600T47 PO (12:08)
[2019-02-12] MEDS ORDERED: CETI10TA16 PO (12:08)
[2019-02-12] MEDS ORDERED: OSEL30CA PO (12:08)
[2019-02-12] MEDS ORDERED: FLUT9.9S NS (12:08)
--- NOTE | 2019-02-12 12:10 | PDOC3 ---
Discharge Summary Visit Information Date of Admission: Feb 11, 2019 Date of Discharge: Feb 12, 2019 Admitting Diagnosis Comment: Influenza A positive SIRS POA with no organ dysfunction Chronic A. fib/paroxysmal, chronic CHF-chronic stable Final Diagnosis Problems Medical Problems: (1) Influenza A Status: Acute (2) Shortness of breath Status: Acute (3) UTI (urinary tract infection) Status: Acute (4) Weakness Status: Acute Brief Hospital Course Allergies Allergies Coded Allergies Type Severity Reaction Last Updated Verified No Known Drug Allergies 05/03/17 No Vital Signs Vital Signs Date Time Temp Pulse Resp B/P (MAP) Pulse Ox O2 Delivery O2 Flow Rate FiO2 02/12/19 11:55 97 Room Air 02/12/19 11:00 98.4 88 20 130/67 (88) 98.4 Lab Results Laboratory Tests Test 02/11/19 16:40 02/11/19 17:00 02/11/19 17:50 02/12/19 04:33 White Blood Count 6.6 x10^3/uL (4.0-11.0) 4.9 x10^3/uL (4.0-11.0) Red Blood Count 4.34 x10^6/uL (3.50-5.40) 3.94 x10^6/uL (3.50-5.40) Hemoglobin 14.1 g/dL (12.0-15.5) 12.8 g/dL (12.0-15.5) Hematocrit 42.1 % (36.0-47.0) 38.1 % (36.0-47.0) Mean Corpuscular Volume 97 fL (79-100) 97 fL (79-100) Mean Corpuscular Hemoglobin 32 pg (25-35) 32 pg (25-35) Mean Corpuscular Hemoglobin Concent 33 g/dL (31-37) 34 g/dL (31-37) Red Cell Distribution Width 14.3 % (11.5-14.5) 14.3 % (11.5-14.5) Platelet Count 142 x10^3/uL (140-400) 128 x10^3/uL (140-400) Neutrophils (%) (Auto) 64 % (31-73) 62 % (31-73) Lymphocytes (%) (Auto) 24 % (24-48) 27 % (24-48) Monocytes (%) (Auto) 9 % (0-9) 10 % (0-9) Eosinophils (%) (Auto) 2 % (0-3) 2 % (0-3) Basophils (%) (Auto) 1 % (0-3) 1 % (0-3) Neutrophils # (Auto) 4.2 x10^3uL (1.8-7.7) 3.0 x10^3uL (1.8-7.7) Lymphocytes # (Auto) 1.6 x10^3/uL (1.0-4.8) 1.3 x10^3/uL (1.0-4.8) Monocytes # (Auto) 0.6 x10^3/uL (0.0-1.1) 0.5 x10^3/uL (0.0-1.1) Eosinophils # (Auto) 0.1 x10^3/uL (0.0-0.7) 0.1 x10^3/uL (0.0-0.7) Basophils # (Auto) 0.0 x10^3/uL (0.0-0.2) 0.0 x10^3/uL (0.0-0.2) Sodium Level 140 mmol/L (136-145) Potassium Level 4.1 mmol/L (3.5-5.1) Chloride Level 103 mmol/L (98-107) Carbon Dioxide Level 30 mmol/L (21-32) Anion Gap 7 (6-14) Blood Urea Nitrogen 14 mg/dL (7-20) Creatinine 1.1 mg/dL (0.6-1.0) Estimated GFR (Cockcroft-Gault) 47.3 BUN/Creatinine Ratio 13 (6-20) Glucose Level 111 mg/dL (70-99) Lactic Acid Level 0.9 mmol/L (0.4-2.0) Calcium Level 8.7 mg/dL (8.5-10.1) Magnesium Level 2.1 mg/dL (1.8-2.4) Total Bilirubin 0.5 mg/dL (0.2-1.0) Aspartate Amino Transf (AST/SGOT) 15 U/L (15-37) Alanine Aminotransferase (ALT/SGPT) 14 U/L (14-59) Alkaline Phosphatase 74 U/L (46-116) Troponin I Quantitative < 0.017 ng/mL (0.000-0.055) LZ-Jdx-V-Type Natriuretic Peptide 1959 pg/mL (0-449) Total Protein 7.0 g/dL (6.4-8.2) Albumin 3.0 g/dL (3.4-5.0) Albumin/Globulin Ratio 0.8 (1.0-1.7) Influenza Type A Antigen Positive (NEGATIVE) Influenza Type B Antigen Negative (NEGATIVE) Urine Collection Type Unknown Urine Color Yellow Urine Clarity Clear Urine pH 5.5 Urine Specific [place] 1.020 Urine Protein Negative mg/dL (NEG-TRACE) Urine Glucose (UA) Negative mg/dL (NEG) Urine Ketones (Stick) Negative mg/dL (NEG) Urine Blood Small (NEG) Urine Nitrite Negative (NEG) Urine Bilirubin Negative (NEG) Urine Urobilinogen Dipstick 0.2 mg/dL (0.2 mg/dL) Urine Leukocyte Esterase Moderate (NEG) Urine RBC Occ /HPF (0-2) Urine WBC 1-4 /HPF (0-4) Urine Squamous Epithelial Cells Few /LPF Urine Bacteria Few /HPF (0-FEW) Urine Mucus Marked /LPF Triglycerides Level 77 mg/dL (0-150) Cholesterol Level 88 mg/dL (0-200) LDL Cholesterol, Calculated 46 mg/dL (0-100) VLDL Cholesterol, Calculated 15 mg/dL (0-40) Non-HDL Cholesterol Calculated 61 mg/dL (0-129) HDL Cholesterol 27 mg/dL (40-60) Cholesterol/HDL Ratio 3.3 Laboratory Tests Test 02/11/19 16:40 02/11/19 17:00 02/11/19 17:50 02/12/19 04:33 White Blood Count 6.6 x10^3/uL (4.0-11.0) 4.9 x10^3/uL (4.0-11.0) Red Blood Count 4.34 x10^6/uL (3.50-5.40) 3.94 x10^6/uL (3.50-5.40) Hemoglobin 14.1 g/dL (12.0-15.5) 12.8 g/dL (12.0-15.5) Hematocrit 42.1 % (36.0-47.0) 38.1 % (36.0-47.0) Mean Corpuscular Volume 97 fL (79-100) 97 fL (79-100) Mean Corpuscular Hemoglobin 32 pg (25-35) 32 pg (25-35) Mean Corpuscular Hemoglobin Concent 33 g/dL (31-37) 34 g/dL (31-37) Red Cell Distribution Width 14.3 % (11.5-14.5) 14.3 % (11.5-14.5) Platelet Count 142 x10^3/uL (140-400) 128 x10^3/uL (140-400) Neutrophils (%) (Auto) 64 % (31-73) 62 % (31-73) Lymphocytes (%) (Auto) 24 % (24-48) 27 % (24-48) Monocytes (%) (Auto) 9 % (0-9) 10 % (0-9) Eosinophils (%) (Auto) 2 % (0-3) 2 % (0-3) Basophils (%) (Auto) 1 % (0-3) 1 % (0-3) Neutrophils # (Auto) 4.2 x10^3uL (1.8-7.7) 3.0 x10^3uL (1.8-7.7) Lymphocytes # (Auto) 1.6 x10^3/uL (1.0-4.8) 1.3 x10^3/uL (1.0-4.8) Monocytes # (Auto) 0.6 x10^3/uL (0.0-1.1) 0.5 x10^3/uL (0.0-1.1) Eosinophils # (Auto) 0.1 x10^3/uL (0.0-0.7) 0.1 x10^3/uL (0.0-0.7) Basophils # (Auto) 0.0 x10^3/uL (0.0-0.2) 0.0 x10^3/uL (0.0-0.2) Sodium Level 140 mmol/L (136-145) Potassium Level 4.1 mmol/L (3.5-5.1) Chloride Level 103 mmol/L (98-107) Carbon Dioxide Level 30 mmol/L (21-32) Anion Gap 7 (6-14) Blood Urea Nitrogen 14 mg/dL (7-20) Creatinine 1.1 mg/dL (0.6-1.0) Estimated GFR (Cockcroft-Gault) 47.3 BUN/Creatinine Ratio 13 (6-20) Glucose Level 111 mg/dL (70-99) Lactic Acid Level 0.9 mmol/L (0.4-2.0) Calcium Level 8.7 mg/dL (8.5-10.1) Magnesium Level 2.1 mg/dL (1.8-2.4) Total Bilirubin 0.5 mg/dL (0.2-1.0) Aspartate Amino Transf (AST/SGOT) 15 U/L (15-37) Alanine Aminotransferase (ALT/SGPT) 14 U/L (14-59) Alkaline Phosphatase 74 U/L (46-116) Troponin I Quantitative < 0.017 ng/mL (0.000-0.055) OL-Hgt-X-Type Natriuretic Peptide 1959 pg/mL (0-449) Total Protein 7.0 g/dL (6.4-8.2) Albumin 3.0 g/dL (3.4-5.0) Albumin/Globulin Ratio 0.8 (1.0-1.7) Influenza Type A Antigen Positive (NEGATIVE) Influenza Type B Antigen Negative (NEGATIVE) Urine Collection Type Unknown Urine Color Yellow Urine Clarity Clear Urine pH 5.5 Urine Specific [place] 1.020 Urine Protein Negative mg/dL (NEG-TRACE) Urine Glucose (UA) Negative mg/dL (NEG) Urine Ketones (Stick) Negative mg/dL (NEG) Urine Blood Small (NEG) Urine Nitrite Negative (NEG) Urine Bilirubin Negative (NEG) Urine Urobilinogen Dipstick 0.2 mg/dL (0.2 mg/dL) Urine Leukocyte Esterase Moderate (NEG) Urine RBC Occ /HPF (0-2) Urine WBC 1-4 /HPF (0-4) Urine Squamous Epithelial Cells Few /LPF Urine Bacteria Few /HPF (0-FEW) Urine Mucus Marked /LPF Triglycerides Level 77 mg/dL (0-150) Cholesterol Level 88 mg/dL (0-200) LDL Cholesterol, Calculated 46 mg/dL (0-100) VLDL Cholesterol, Calculated 15 mg/dL (0-40) Non-HDL Cholesterol Calculated 61 mg/dL (0-129) HDL Cholesterol 27 mg/dL (40-60) Cholesterol/HDL Ratio 3.3 Brief Hospital Course Ms. Fletcher is a 83 old very pleasant white female with good ADLs admitted for influenza A positive. She has other cardiac history of CHF for persistent A. fib on Xarelto which is chronic stable. Sounds congested, comanage with cardio and pulmonary. Echo pending. Cleared from ID to go home Tamiflu on chart DC time less than 30 minutes with no PT needs consults performed cardiology, infectious disease Procedure is performed none Discharge Information Condition at Discharge: Improved, Stable Follow Up: Weeks (4 weeks PCP if no better) Disposition/Orders: D/C to Home Scheduled Calcium Polycarbophil (Fiber) 625 Mg Tablet, 625 MG PO DAILY for bowel regimen, (Reported) Entered as Reported by: KIKO QUINONES on 02/11/192054 Last Action: Continued on 02/11/192056 by KIKO QUINONES Cetirizine Hcl (Cetirizine Hcl) 10 Mg Tablet, 1 TAB PO DAILY for congestion, #7 Ref 5 Prescribed by: VENKATESH MCKENNA on 02/12/19 1208 Cholecalciferol (Vitamin D3) (Vitamin D) 5,000 Unit Capsule, 1,000 UNIT PO DAILY for supplement, (Reported) Entered as Reported by: KIKO QUINONES on 02/11/192054 Last Action: Continued on 02/11/192056 by KIKO QUINONES Fluticasone Propionate (Flonase Allergy Relief) 9.9 Ml [place].susp, 2 SPRAYS NS DAILY for congestion for 7 Days Prescribed by: VENKATESH MCKENNA on 02/12/19 1208 Guaifenesin (Mucinex) 600 Mg Tablet.er, 600 MG PO BID for cough MDD 1, #14 Prescribed by: VENKATESH MCKENNA on 02/12/19 1208 Levothyroxine Sodium (Levothyroxine Sodium) 112 Mcg Tablet, 1 TAB PO DAILY, #30 Ref 5 (Reported) Entered as Reported by: AMANDO LAST on 05/03/17 0816 Last Action: Continued on 02/11/192056 by KIKO QUINONES Oseltamivir Phosphate (Tamiflu) 30 Mg Capsule, 30 MG PO BID for flu A MDD 1, #10 Prescribed by: VENKATESH MCKENNA on 02/12/19 1208 Propranolol Hcl (Inderal Xl) 120 Mg Cap.er.24h, 2 CAP PO DAILY for headache, ( Reported) Entered as Reported by: KIKO QUINONES on 02/11/192054 Last Action: Converted on 02/11/192056 by KIKO QUINONES Rivaroxaban (Xarelto) 20 Mg Tablet, 20 MG PO DAILY, (Reported) Entered as Reported by: AMANDO LAST on 05/03/17815 Last Action: Converted on 02/11/192056 by KIKO QUINONES Simvastatin (Simvastatin) 10 Mg Tablet, 1 TAB PO QHS, #30 Ref 5 (Reported) Entered as Reported by: AMANDO LAST on 05/03/17815 Last Action: Continued on 02/11/192056 by KIKO QUINONES Scheduled PRN Acetaminophen (Tylenol) 325 Mg Tablet, 2 TAB PO PRN Q8HRS PRN for PAIN, #30 ( Reported) Entered as Reported by: KIKO QUINONES on 02/11/192054 Last Action: Continued on 02/11/192056 by VENKATESH MONTAÑO MD Feb 12, 2019 12:10
[2019-02-12] MEDS ORDERED: DIGOXIN IV 500 MCG/2 ML AMPUL. IV ONE (12:15)
[2019-02-12] MEDS ORDERED: ANTI-COAG MONITOR BY PHARMACY. MC PRN (14:45)
[2019-02-12 15:00] VITALS: BP 125/60
--- NOTE | 2019-02-12 19:17 | NUR ---
Discharge Note: KAYLYN TOMAS Discharge instructions and discharge home medications reviewed with Patient and a copy given. All questions have been answered and understanding verbalized. The following instructions and handouts were given: Influenza A, Atrial Fibrillation Discontinued lines and drains: PIV, Catheter intact. Patient discharged to Home with Self-Care via Private Vehicle
--- NOTE | 2019-02-12 22:31 | CONS ---
DATE OF CONSULTATION: 02/12/2019 REFERRING PHYSICIAN: Dr. Griffin. REASON FOR CONSULTATION: Antibiotic management. HISTORY OF PRESENT ILLNESS: An 83-year-old female, who presented to the ER on 02/11/2019 with shortness of breath, which occurred couple of days ago along with cough. No sputum production, generalized weakness, cold-like symptoms and generalized achiness, which kept on getting worse. Her appetite was low. She went to the ER per her doctor's office and they did a chest x-ray, which was concerning with some heart failure. She was also checked for influenza A, which was positive. UA showed leukocyte esterase and there was concern about UTI, so she was started on Tamiflu, IV Levaquin, and IV fluids. The patient had normal white count. BNP was around 2000. Creatinine of 1.1. UA showed 1-4 wbc's, leukocyte esterase positive. Influenza A positive. This morning, the patient is feeling much better, still has some cough, but improving. No sputum production. Shortness of breath is improving. Generalized achiness and weakness is improving. She is tolerating her p.o. intake well. Denies any headache. Does have some sore throat, but no difficulty swallowing. No sores in her mouth. She denies any neck pain, nausea, vomiting, diarrhea, abdominal pain, symptoms, rash, or joint pain. She did have contact with little kids a week ago, but no known sick contact. Family is at bedside. PAST MEDICAL HISTORY: AFib on anticoagulation, hyperlipidemia, hypothyroidism, osteopenia, cholecystectomy, and hysterectomy. ALLERGIES: None. FAMILY HISTORY: As per HPI. SOCIAL HISTORY: Denies smoking, ETOH, or illicit drug use. Retired. Son and daughter are at bedside. CURRENT MEDICATION: IV Levaquin and Tamiflu. MEDICATIONS: Reviewed in medication list. REVIEW OF SYSTEMS: Negative except for above in HPI. PHYSICAL EXAMINATION: VITAL SIGNS: Temperature 98.0, pulse 102, respiratory rate 20, blood pressure 143/86, oxygen saturation 96% on room air. GENERAL: Alert and oriented x 3, pleasant female sitting up in bed, in no acute distress, cooperative, pleasant. HEENT: Normocephalic, atraumatic, anicteric. No thrush. Oral mucosa moist. NECK: Supple, no JVD, no thyromegaly. LUNGS: Decreased breath sounds at the bases. No wheezing. HEART: S1, S2. No gallops, murmurs, or rubs. ABDOMEN: Soft, nontender, nondistended. No rebound, no guarding. EXTREMITIES: Trace pedal edema, left greater than the right, which is baseline. PSYCHIATRIC: Cooperative, appropriate mood and affect. CENTRAL NERVOUS SYSTEM: Alert and oriented x 3. Grossly nonfocal. DERMATOLOGIC: Warm, dry, no generalized rash. LABORATORY DATA: Influenza A positive. WBC 4.9, hemoglobin 12.8, hematocrit 38.1, platelets 128. Sodium 140, potassium 4.1, chloride 103, bicarbonate 30, BUN 14, creatinine 1.1. Lactate 0.9. LFTs within normal limits. BNP about 2000. Albumin 3.0. UA, wbc 1-4, leukocyte esterase moderate. DIAGNOSTICS: None. IMPRESSION: 1. Influenza A. 2. Acute on chronic systolic and diastolic heart failure from above. 3. Pyuria, asymptomatic. 4. History of atrial fibrillation 5. Mild thrombocytopenia from above. RECOMMENDATIONS: 1. Continue Tamiflu. 2. Discontinue IV Levaquin. 3. Continue supportive care. 4. Follow up labs in a.m. and cultures. 5. The patient is okay to discharge home from ID standpoint. 6. Discussed with son and daughter at bedside. 7. Discussed with RN. Thank you, Dr. Griffin, for consulting Infectious Disease to participate in this patient's care. If you have any questions, do not hesitate to contact me. ELLI ALFRED MD DR: CORRINA/miguel JOB#: [id number] / [id number]
--- NOTE | 2019-02-13 08:36 | CARD ---
MR#: [id number] Date of Study: 02/12/2019 Ordering Physician: VENKATESH MCKENNA, Referring Physician: Courtney TORRES: Padmini Holt APPROVED REPORT EXAM: Two-dimensional and M-mode echocardiogram with Doppler and color Doppler. INDICATION Dyspnea Flu RISK FACTORS Hyperlipidemia 2D DIMENSIONS RVDd2.9 (2.9-3.5cm)Left Atrium(2D)3.7 (1.6-4.0cm) IVSd1.2 (0.7-1.1cm)Aortic Root(2D)3.2 (2.0-3.7cm) LVDd5.0 (3.9-5.9cm)LVOT Diameter2.0 (1.8-2.4cm) PWd1.0 (0.7-1.1cm)LVDs3.2 (2.5-4.0cm) FS (%) 35.2 %SV74.9 ml LVEF(%)64.3 (>50%) Aortic Valve AoV Peak Murray.128.7cm/sAoV VTI20.3cm AO Peak GR.6.6mmHgLVOT VTI 14.84cm AO Mean GR.3mmHg TDI Lateral E' P. V6.76cm/sMedial E' P. V4.96cm/s Tricuspid Valve TR P. Smozkxtx010qc/sRAP [id number] TR Peak Gr.[id number] Pulmonary Vein S1 Wdzzyckb99.9cm/sS2 Fbldivjx84.92cm/s D2 Mhpxehre39.9cm/s LEFT VENTRICLE The left ventricle is normal size. There is borderline to mild concentric left ventricular hypertroph y. The left ventricular systolic function is normal. The Ejection Fraction is 55-60%. There is normal LV segmental wall motion. Diastology indeterminate due to atrial fibrillation. RIGHT VENTRICLE The right ventricle is normal size. There is normal right ventricular wall thickness. The right ventr icular systolic function is normal. ATRIA The left atrium is borderline dilated. The right atrium size is normal. The interatrial septum is int act with no evidence for an atrial septal defect or patent foramen ovale as noted on 2-D or Doppler i bam. AORTIC VALVE The aortic valve is thickened but opens well. Doppler and Color Flow revealed no significant aortic r egurgitation. There is no significant aortic valvular stenosis. MITRAL VALVE The mitral valve is normal in structure and function. A borderline mitral valve prolapse is present. There is no mitral valve stenosis. Doppler and Color-flow revealed trace mitral regurgitation. TRICUSPID VALVE The tricuspid valve is normal in structure and function. Doppler and Color Flow revealed trace tricus pid regurgitation with an estimated PAP of 28 mmHg. There is no tricuspid valve stenosis. PULMONIC VALVE The pulmonary valve is normal in structure and function. Doppler and Color Flow revealed no pulmonic valvular regurgitation. GREAT VESSELS The aortic root is normal in size. The IVC is normal in size and collapses >50% with inspiration. PERICARDIAL EFFUSION There is no evidence of significant pericardial effusion. Critical Notification Critical Value: No <Conclusion> The left ventricular systolic function is normal. The Ejection Fraction is 55-60%. There is normal LV segmental wall motion. Trace mitral regurgitation. Trace tricuspid regurgitation with an estimated PAP of 28 mmHg. There is no evidence of significant pericardial effusion. Signed by : Marck Malloy, Electronically Approved : 02/13/2019 08:35:41
== END 2019-02-12 18:05 | disposition home or self-care (01) | DRG 871 ==
LOC: ER 16:06 → 5 NORTH 17:15
PROVIDERS: ADMIT Internal Medicine; ATTEND Internal Medicine
DX: A41.9 Sepsis, unspecified organism (principal); I50.43 Acute on chronic combined systolic (congestive) and diastolic (congestive) heart failure; N39.0 Urinary tract infection, site not specified; I48.1 Persistent atrial fibrillation; J10.1 Influenza due to other identified influenza virus with other respiratory manifestations; I11.0 Hypertensive heart disease with heart failure; D69.59 Other secondary thrombocytopenia; G43.909 Migraine, unspecified, not intractable, without status migrainosus; M19.90 Unspecified osteoarthritis, unspecified site; E03.9 Hypothyroidism, unspecified; E78.00 Pure hypercholesterolemia, unspecified; E78.5 Hyperlipidemia, unspecified; I48.2 Chronic atrial fibrillation; Z79.01 Long term (current) use of anticoagulants; Z82.49 Family history of ischemic heart disease and other diseases of the circulatory system; Z90.710 Acquired absence of both cervix and uterus; Z90.49 Acquired absence of other specified parts of digestive tract
CPT/HCPCS: 36415; 80053; 80061; 81001; 83605; 83735; 83880; 84484; 85025; 87040; 87086; 87804; 93005; 93306; 94640; 94760; J1160; J1956; J7620; 99285-25

== ENCOUNTER → 2021-02-22 | Outpatient (CLI) | payer MEDICARE, OTHER ==
[~2021-02-22] MED LIST changes: +ACET325T9 PO; +CALC625T12 PO; +CETI10TA16 PO; +CHOL500051 PO; +FLUT9.9S NS; +GUAI600T47 PO; -LEVO112T4 PO; +LEVO112T49 PO; +OSEL30CA PO; +PROP120C48 PO; +SIMV10TA15 PO; -SIMV10TA3 PO
--- NOTE | 2021-02-22 13:48 | CARD ---
MR#: [id number] Date of Study: 02/22/2021 Ordering Physician: GISSELLE MOTT, Referring Physician: GISSELLE MOTT, Tech: Loreto Beavers [facility] APPROVED REPORT EXAM: Two-dimensional and M-mode echocardiogram with Doppler and color Doppler. Other Information Quality : Good Rhythm : Atrial Fibrillation INDICATION Atrial Fibrillation 2D DIMENSIONS RVDd3.1 (2.9-3.5cm)Left Atrium(2D)3.9 (1.6-4.0cm) IVSd1.1 (0.7-1.1cm)Aortic Root(2D)2.9 (2.0-3.7cm) LVDd4.6 (3.9-5.9cm)LVOT Diameter2.2 (1.8-2.4cm) PWd1.1 (0.7-1.1cm)LVDs3.2 (2.5-4.0cm) FS (%) 30.5 %SV55.7 ml LVEF(%)58.1 (>50%) Aortic Valve AoV Peak Murray.124.7cm/sAoV VTI21.2cm AO Peak GR.6.2mmHgLVOT Peak Murray.72.7cm/s AO Mean GR.3mmHgAVA (VMAX)2.23cm2 JEFF (VTI)2.20cm2 Mitral Valve MV E Odoyqyql810.4cm/sMV A Velocity1.5cm/s E/A Ratio71.6 Tricuspid Valve TR P. Swfhtbtc808ut/sRAP NPSXKGBO2ayRs TR Peak Gr.37obToQDAZ31hbJo Pulmonary Vein S1 Iwirmmdi12.9cm/sD2 Kbeptqns96.8cm/s LEFT VENTRICLE The left ventricle is normal size. There is normal left ventricular wall thickness. The left ventricu lar systolic function is normal and the ejection fraction is within normal range. The Ejection Fracti on is 55-60%. There is normal LV segmental wall motion. Transmitral Doppler flow pattern is Grade II- pseudonormal filling dynamics. RIGHT VENTRICLE The right ventricle is normal size. The right ventricular systolic function is normal. ATRIA The left atrium is mildly dilated. The right atrium is mildly dilated. The interatrial septum is inta ct with no evidence for an atrial septal defect or patent foramen ovale as noted on 2-D or Doppler im aging. AORTIC VALVE The aortic valve is mildly thickened but opens well. Doppler and Color Flow revealed mild eccentric a ortic regurgitation. There is no significant aortic valvular stenosis. MITRAL VALVE The mitral valve is mildly thickened but opens well. Mitral annular calcification is mild. There is n o evidence of mitral valve prolapse. There is no mitral valve stenosis. Doppler and Color-flow reveal ed mild mitral regurgitation. TRICUSPID VALVE The tricuspid valve is normal in structure and function. Doppler and Color Flow revealed mild tricusp id regurgitation. The PA pressure was estimated at 40 mmHg. There is no tricuspid valve stenosis. PULMONIC VALVE The pulmonary valve is normal in structure and function. Doppler and Color Flow revealed mild to mode rate pulmonic valvular regurgitation. There is no pulmonic valvular stenosis. GREAT VESSELS The aortic root is normal in size. The ascending aorta is normal in size. The IVC is normal in size a nd collapses >50% with inspiration. PERICARDIAL EFFUSION There is no evidence of significant pericardial effusion. Critical Notification Critical Value: No <Conclusion> The left ventricle is normal size. The left ventricular systolic function is normal and the ejection fraction is within normal range. The Ejection Fraction is 55-60%. Doppler and Color Flow revealed mild eccentric aortic regurgitation. There is no significant aortic valvular stenosis. Doppler and Color-flow revealed mild mitral regurgitation. Doppler and Color Flow revealed mild tricuspid regurgitation. The PA pressure was estimated at 40 mmHg. Signed by : Gregorio Marcus MD Electronically Approved : 02/22/2021 13:48:09
== END ==
LOC: ECHO 12:35
PROVIDERS: ATTEND Internal Medicine Cardiovascular Disease
DX: I08.8 Other rheumatic multiple valve diseases (principal); I48.91 Unspecified atrial fibrillation
CPT/HCPCS: 93306

== ENCOUNTER → 2022-03-14 | Outpatient (CLI) | payer MEDICARE, OTHER ==
[~2022-03-14] MED LIST changes: +ALBU2.5V8 IH; +BENZ200C47 PO; +GUAI473L15 PO; +PRED20TA PO; +REGADENOSON 0.4 MG/5 ML DISP.SYRIN. IV ONE
--- NOTE | 2022-03-14 16:06 | RAD ---
MR#: [id number] Date of Study: 03/14/2022 Ordering Physician: GISSELLE MOTT, Referring Physician: ABRAHAM GUALLPA Tech: ANNAMARIA Hoyos, ARRT (R) (N) APPROVED REPORT Test Type: Pharmacological Stress Nurse/Tech: Jesenia GERMAN Test Indications: Afib Cardiac History: Afib, COPD, Anticoags, High cholesterol Medications: Xarelto Medical History: See EMR Resting ECG: afib Resting Heart Rate: 90 bpm Resting Blood Pressure: 170/86mmHg Pretest Chest Pain: None Nurse/Tech Notes Lungs clear, diminished. Heart tones irregular, clear. Patient has consistent SOA, increased with exe rtion. Pharm. Details Pharmacologic stress testing was performed using 0.4mg per 5ml of regadenoson given intravenously ove r 7-10 seconds. Stress Symptoms Dyspnea, Flushing. SOA resolved by end of recovery. No chest pain. POST EXERCISE Reason for Termination: Infusion complete Max HR: 148 bpm Max Blood Pressure: 171/93mmHg Blood Pressure response to exercise: Normal blood pressure response during stress. Heart Rate response to exercise: Normal response. Chest Pain: No. Arrhythmia: No. ST Change: No. INTERPRETATION Stress EKG Conclusion: Baseline EKG showed atrial fibrillation. Nondiagnostic changes at peak stress . No arrhythmias. Imaging Protocol IMAGE PROTOCOL: Rest Tc-99m/stress Tc-99m 1 day Rest: Stress: Viability: Radiopharm.Tc99m PpqewyijySq89a Sestamibi Dyho93oTj 31.5mCi Img Date 03/14/2022 03/14/2022 Inj-Img Brnx85iyc. 60min. Rest Admin Site:IV - Right AntecubitalAdministrator:ANNAMARIA Hoyos, ARRT (R)(N) Stress Admin Site: IV - Right AntecubitalAdministrator: RT Tomás (R)(N) STRESS DATA End Diast. Vol.50.0mlLVEDV index BSA26.0ml End Syst. Vol.38.0mlLVESV index BSA20.0ml Myocardial Mass83.0gEject. Cistzmhv47.0% Stress Scores Regional WT3.00Summed WT50.00 Regional WM3.00Summed WM50.00 LV Perfusion Scintigraphic images did not show any significant fixed or reversible defects. Wall Motion The left ventricle systolic function was calculated at 21%. However, this might be spuriously low du e to the difficulty gating with atrial fibrillation. Recommend checking 2D echocardiogram. LV Perf. Quant 17 Seg. SSS7.00 17 Seg. SRS0.00 17 Seg. SDS7.00 Stress Defect Extent (% LAD)0.00Rest Defect Extent (% LAD)0.00Rev. Defect Extent (% LAD)0.00 Stress Defect Extent (% LCX) 47.50Rest Defect Extent (% LCX)5.00Rev. Defect Extent (% LCX)41.30 Stress Defect Extent (% RCA)0.00Rest Defect Extent (% RCA)0.00Rev. Defect Extent (% RCA)0.00 Stress Defect Extent (% THEA)9.60Rest Defect Extent (% THEA)0.90Rev. Defect Extent (% THEA)7.80 Conclusion 1. Regadenoson cardioisotope stress test did not show any evidence of ischemia or infarct. 2. The left ventricle systolic function was calculated at 21%. However, this might be spuriously low due to the difficulty gating with atrial fibrillation. Recommend checking 2D echocardiogram. 3. Low risk for cardiac events. Signed by : Marck Malloy, Electronically Approved : 03/14/2022 16:06:15
--- NOTE | 2022-03-14 16:08 | CARD ---
MR#: [id number] Date of Study: 03/14/2022 Ordering Physician: GISSELLE MOTT, Referring Physician: GISSELLE MOTT, Tech: Shaila Varghese [facility] APPROVED REPORT EXAM: Two-dimensional and M-mode echocardiogram with Doppler and color Doppler. Other Information Quality : AverageHR: 85bpm INDICATION Atrial Fibrillation RISK FACTORS Hypertension Hyperlipidemia 2D DIMENSIONS RVDd2.9 (2.9-3.5cm)Left Atrium(2D)4.0 (1.6-4.0cm) IVSd1.0 (0.7-1.1cm)Aortic Root(2D)3.5 (2.0-3.7cm) LVDd4.4 (3.9-5.9cm)LVOT Diameter2.0 (1.8-2.4cm) PWd1.3 (0.7-1.1cm)LVDs3.2 (2.5-4.0cm) FS (%) 26.7 %SV46.1 ml LVEF(%)52.4 (>50%) Aortic Valve AoV Peak Murray.132.6cm/sAoV VTI27.7cm AO Peak GR.7.0mmHgLVOT Peak Murray.84.6cm/s AO Mean GR.4mmHgAVA (VMAX)2.07cm2 Pulmonary Valve PV Peak Dmwyiynh91.7cm/s Tricuspid Valve TR P. Flrlioav865ba/sTR Peak Gr.42mmHg LEFT VENTRICLE The left ventricle is normal size. There is borderline to mild concentric left ventricular hypertroph y. The left ventricular systolic function is normal. Estimated ejection fraction 55%. There is liborio l LV segmental wall motion. The left ventricular diastolic function and filling is normal for age. RIGHT VENTRICLE The right ventricle is normal size. There is normal right ventricular wall thickness. The right ventr icular systolic function is normal. ATRIA The left atrium size is moderately dilated. The right atrium is moderately dilated. The interatrial s eptum is intact with no evidence for an atrial septal defect or patent foramen ovale as noted on 2-D or Doppler imaging. AORTIC VALVE The aortic valve is calcified but opens well. Doppler and Color Flow revealed trace aortic regurgitat ion. There is no significant aortic valvular stenosis. MITRAL VALVE The mitral valve is normal in structure and function. There is no evidence of mitral valve prolapse. There is no mitral valve stenosis. Doppler and Color-flow revealed mild mitral regurgitation. TRICUSPID VALVE The tricuspid valve is normal in structure and function. Doppler and Color Flow revealed mild tricusp id regurgitation. Estimated PAP 45 mmHg. There is no tricuspid valve stenosis. PULMONIC VALVE Doppler and Color Flow revealed mild pulmonic valvular regurgitation. GREAT VESSELS The aortic root is normal in size. The ascending aorta is normal in size. The IVC is normal in size a nd collapses >50% with inspiration. PERICARDIAL EFFUSION There is no evidence of significant pericardial effusion. Critical Notification Critical Value: No <Conclusion> The left ventricular systolic function is normal. Estimated ejection fraction 55%. There is normal LV segmental wall motion. Moderate biatrial dilatation. Mild mitral regurgitation. Mild tricuspid regurgitation. Estimated PAP 45 mmHg. There is no evidence of significant pericardial effusion. Signed by : Marck Malloy, Electronically Approved : 03/14/2022 16:07:50
== END ==
LOC: NM 09:46
PROVIDERS: ATTEND Internal Medicine Cardiovascular Disease
DX: I08.8 Other rheumatic multiple valve diseases (principal); I48.91 Unspecified atrial fibrillation
CPT/HCPCS: 78452; 93017; 93306; A9500; J2785; C8929

== ENCOUNTER 2022-03-16 12:17 | Emergency (ER) | payer MEDICARE, OTHER ==
[~2022-03-16] VITALS: Ht 162.6 cm; Wt 90.8 kg
[~2022-03-16 12:17] MED LIST changes: -ALBU2.5V8 IH; -BENZ200C47 PO; -GUAI473L15 PO; -PRED20TA PO; -REGADENOSON 0.4 MG/5 ML DISP.SYRIN. IV ONE
--- NOTE | 2022-03-16 14:15 | RAD ---
EXAMINATION: Chest radiograph. VIEWS: Single AP view of the chest COMPARISON: None INDICATION:86 years, Female, dyspnea. FINDINGS: Normal cardiomediastinal silhouette. No focal consolidation. No pleural effusion or pneumothorax. No acute osseous process. IMPRESSION: No acute cardiopulmonary process. Electronically signed by: Shaun Felton DO (03/16/2022 2:13 PM) [facility]
[2022-03-16 14:33] VITALS: BP 141/62
[2022-03-16 14:49] LABS: BASO # 0.1 x10^3/uL (0.0-0.2); BASO % 1 % (0-3); EOS # 0.2 x10^3/uL (0.0-0.7); EOS % 3 % (0-3); HEMATOCRIT 41.9 % (36.0-47.0); HEMOGLOBIN 14.2 g/dL (12.0-15.5); LYMPH % 17 % (24-48); MEAN CORPUSCULAR HEMOGLOBIN 33 pg (25-35); MEAN CORPUSCULAR HGB CONC 34 g/dL (31-37); MEAN CORPUSCULAR VOLUME 97 fL (79-100); MONO # 0.4 x10^3/uL (0.0-1.1); MONO % 8 % (0-9); NEUT # 4.1 x10^3/uL (1.8-7.7); NEUT % 71 % (31-73); PLATELET COUNT 175 x10^3/uL (140-400); RED BLOOD COUNT 4.31 x10^6/uL (3.50-5.40); RED CELL DISTRIBUTION WIDTH 13.7 % (11.5-14.5); WHITE BLOOD COUNT 5.7 x10^3/uL (4.0-11.0)
--- NOTE | 2022-03-16 16:34 | PHYS DOC ---
Past Medical History Past Medical History: A-Fib, High Cholesterol, Hypothyroid, Other Additional Past Medical Histor: OSTEOPENIA Past Surgical History: No Surgical History Smoking Status: Never Smoker Alcohol Use: None Drug Use: None General Adult EDM: Chief Complaint: SHORTNESS OF BREATH HPI: HPI: Patient is a 86 year old female who presents to the ED c/o SOB onset yesterday. Patient reports associated sore throat and cough. Patient denies fever. No other complaints at this time. Denies trauma. Denies known sick contacts. Review of Systems: Review of Systems: Constitutional: Denies fever or chills Eyes: Denies redness or eye pain HENT: Denies nasal congestion; Reports sore throat Respiratory: Reports cough and shortness of breath Cardiovascular: Denies chest pain or palpitations GI: Denies abdominal pain, nausea, or vomiting : Denies dysuria or hematuria Musculoskeletal: Denies back pain or joint pain Integument: Denies rash or skin lesions Neurologic: Denies headache, focal weakness or sensory changes Complete systems were reviewed and found to be within normal limits, except as documented in this note. Heart Score: C/O Chest Pain: N/A Allergies: Allergies: Allergies Coded Allergies Type Severity Reaction Last Updated Verified No Known Drug Allergies 03/16/22 No Physical Exam: PE: Constitutional: Elderly, well nourished, no acute distress, non-toxic appearance HENT: Normocephalic, atraumatic, pharynx clear and without exudate Eyes: PERRL, EOMI, conjunctiva normal, no discharge Neck: Normal range of motion, no tenderness, supple Lungs & Thorax: No respiratory distress, equal chest rise and fall, minimal rhonchi bilaterally Abdomen: Soft, no tenderness Skin: Warm, dry, no erythema, no rash Extremities: No tenderness, ROM intact, no edema Neurologic: Alert and oriented X 3, normal motor function, normal sensory function, no focal deficits noted Psychologic: Affect normal, judgment normal Current Patient Data: Labs: Laboratory Tests Test 03/16/22 14:31 White Blood Count 5.7 x10^3/uL (4.0-11.0) Red Blood Count 4.31 x10^6/uL (3.50-5.40) Hemoglobin 14.2 g/dL (12.0-15.5) Hematocrit 41.9 % (36.0-47.0) Mean Corpuscular Volume 97 fL (79-100) Mean Corpuscular Hemoglobin 33 pg (25-35) Mean Corpuscular Hemoglobin Concent 34 g/dL (31-37) Red Cell Distribution Width 13.7 % (11.5-14.5) Platelet Count 175 x10^3/uL (140-400) Neutrophils (%) (Auto) 71 % (31-73) Lymphocytes (%) (Auto) 17 % (24-48) L Monocytes (%) (Auto) 8 % (0-9) Eosinophils (%) (Auto) 3 % (0-3) Basophils (%) (Auto) 1 % (0-3) Neutrophils # (Auto) 4.1 x10^3/uL (1.8-7.7) Lymphocytes # (Auto) 1.0 x10^3/uL (1.0-4.8) Monocytes # (Auto) 0.4 x10^3/uL (0.0-1.1) Eosinophils # (Auto) 0.2 x10^3/uL (0.0-0.7) Basophils # (Auto) 0.1 x10^3/uL (0.0-0.2) Laboratory Tests 03/16/22 14:31 Vital Signs: Vital Signs Date Time Temp Pulse Resp B/P (MAP) Pulse Ox O2 Delivery O2 Flow Rate FiO2 03/16/22 14:33 97 16 141/62 (88) Room Air 03/16/22 14:33 95 03/16/22 12:35 98.4 98.4 EKG: EKG: @1331 Afib RAD rate [address] elevation QT 346 QTc 422 Radiology/Procedures: Radiology/Procedures: PROCEDURE: PORTABLE CHEST 1V EXAMINATION: Chest radiograph. VIEWS: Single AP view of the chest COMPARISON: None INDICATION:86 years, Female, dyspnea. FINDINGS: Normal cardiomediastinal silhouette. No focal consolidation. No pleural effusion or pneumothorax. No acute osseous process. IMPRESSION: No acute cardiopulmonary process. Electronically signed by: Shaun Felton DO (03/16/2022 2:13 PM) [facility] Course & Med Decision Making: Course & Med Decision Making Pt is an 86 year old F who presents with SOB Concerns for flu/covid/URI Labs unremarkable including d-dimer. Rapid influenza and COVID negative. CXR no acute findings Pertinent Labs and Imaging studies reviewed. (See chart for details) Patient stable for discharge with outpatient follow-up with PCP. Discussed findings and plan with patient, who acknowledges understanding and agreement. Cory Disclaimer: Cory Disclaimer: This electronic medical record was generated, in whole or in part, using a voice recognition dictation system. Departure Departure Impression: Primary Impression: Bronchitis Disposition: HOME / SELF CARE / HOMELESS Condition: STABLE Referrals: ANTHONY GUIDRY MD (PCP) Patient Instructions: Acute Bronchitis, Xdrt-wp-Absy Additional Instructions: May use rzqv-bkg-ccdgsij cold and cough remedies as needed. Use bedside humidifier at night when sleeping. Scripts Guaifenesin/Codeine Phosphate (GUAIFENESIN AC COUGH SYRUP) 473 Ml Liquid 10 ML PO PRN Q4-6HRS PRN for cough and congestion MDD 60 Milliliter(s), #240 ML 0 Refills Prov: ANGELO BRAVO DO 03/16/22 Benzonatate (BENZONATATE) 200 Mg Capsule 1 CAP PO PRN TID PRN for cough, #30 CAP 0 Refills Prov: ANGELO BRAVO DO 03/16/22 Prednisone (PREDNISONE) 20 Mg Tablet 2 TAB PO DAILY, #8 TAB Prov: ANGELO BRAVO DO 03/16/22 Albuterol Sulfate (PROAIR HFA INHALER) 8.5 Gm Hfa.aer.ad 2 PUFF IH PRN Q4-6HRS PRN for wheezing, #1 INHALER 0 Refills Prov: ANGELO BRAVO DO 03/16/22 ANGELO BRAVO DO Mar 16, 2022 16:34
[2022-03-16] MEDS ORDERED: BENZ200C47 PO (16:53)
[2022-03-16] MEDS ORDERED: PRED20TA PO (16:53)
[2022-03-16] MEDS ORDERED: GUAI473L15 PO (16:53)
[2022-03-16] MEDS ORDERED: ALBU2.5V8 IH (16:53)
[2022-03-17 03:34] LABS: PROTHROMBIN TIME PATIENT 20.4 SEC (11.7-14.0)
[2022-03-17 03:49] LABS: INFLUENZA A PATIENT NEGATIVE (NEGATIVE); INFLUENZA B PATIENT NEGATIVE (NEGATIVE)
[2022-03-17 04:20] LABS: CALCIUM 8.9 mg/dL (8.5-10.1); CREATININE 0.9 mg/dL (0.6-1.0); GFR 59.2; POTASSIUM 4.8 mmol/L (3.5-5.1)
[2022-03-17 04:26] LABS: ALBUMIN 3.3 g/dL (3.4-5.0); TOTAL BILIRUBIN 0.7 mg/dL (0.2-1.0); TOTAL PROTEIN 6.6 g/dL (6.4-8.2)
== END 2022-03-16 17:25 | disposition home or self-care (01) ==
LOC: ER 12:17
DX: J40 Bronchitis, not specified as acute or chronic (principal); Z20.822 Contact with and (suspected) exposure to COVID-19; I48.91 Unspecified atrial fibrillation; E78.00 Pure hypercholesterolemia, unspecified; E03.9 Hypothyroidism, unspecified
CPT/HCPCS: 36415; 71045; 80053; 83605; 83735; 84484; 85025; 85379; 85610; 85730; 87428; 99285-25

== ENCOUNTER 2022-03-26 17:36 | Inpatient (IN) | payer MEDICARE, OTHER ==
[~2022-03-26] VITALS: Ht 162.6 cm; Wt 88.6 kg
[~2022-03-26 17:36] MED LIST changes: +ALBU2.5V8 IH; +BENZ200C47 PO; +GUAI473L15 PO; +PRED20TA PO
[2022-03-26] MEDS ORDERED: methylPREDNISolone SOD SUCC PF 125 MG/2 ML VIAL. IV ONE (18:15)
[2022-03-26] MEDS ORDERED: IPRATRPIUM/ALBUTEROL 0.5/2.5MG 3 ML NEBU. NEB ONE (18:15)
--- NOTE | 2022-03-26 18:20 | PHYS DOC ---
Past Medical History Past Medical History: A-Fib, High Cholesterol, Hypothyroid, Other Additional Past Medical Histor: OSTEOPENIA Past Surgical History: No Surgical History Smoking Status: Never Smoker Alcohol Use: None Drug Use: None Adult General Chief Complaint Chief Complaint: SHORTNESS OF BREATH HPI HPI Patient is a 87 year old female presenting to the emergency department for evaluation of worsening shortness of breath over the past 9 to 10 days. She says she has had a nonproductive cough and no measured fevers or chills. She says that she has seen her doctor for this 2 times in last week she was put on an antibiotic and a steroid but she has finished both and she has also been using her nebulizer 3-4 times a day but says that she feels that she is continui ng to get worse. She does have a history of atrial fibrillation and takes Xarelto daily and has not missed any doses. Patient denies any pain nausea vomiting diarrhea or increased edema. She appears to be dyspneic but nontoxic with an oxygen saturation of 94% on room air. Review of Systems Review of Systems Constitutional: Denies fever or chills [] Eyes: Denies change in visual acuity, redness, or eye pain [] HENT: Denies nasal congestion or sore throat [] Respiratory: + cough, shortness of breath [] Cardiovascular: No additional information not addressed in HPI [] GI: Denies abdominal pain, nausea, vomiting, bloody stools or diarrhea [] : Denies dysuria or hematuria [] Musculoskeletal: Denies back pain or joint pain [] Integument: Denies rash or skin lesions [] Neurologic: Denies headache, focal weakness or sensory changes [] All other systems were reviewed and found to be within normal limits, except as documented in this note. Current Medications Current Medications Current Medications Medications (Trade) Dose Ordered Sig/Radha Start Time Stop Time Status Last Admin Dose Admin Albuterol/ Ipratropium (Duoneb) 3 ml 1X ONCE 03/26/22 18:15 03/26/22 18:16 DC 03/26/22 18:31 3 ML Methylprednisolone Sodium Succinate (SOLU-Medrol 125MG VIAL) 125 mg 1X ONCE 03/26/22 18:15 03/26/22 18:16 DC 03/26/22 18:32 125 MG Allergies Allergies Allergies Coded Allergies Type Severity Reaction Last Updated Verified No Known Drug Allergies 03/16/22 No Physical Exam Physical Exam Constitutional: Well developed, well nourished, no acute distress, non-toxic appearance. [] HENT: Normocephalic, atraumatic, bilateral external ears normal, oropharynx moist, no oral exudates, nose normal. [] Eyes: PERRLA, EOMI, conjunctiva normal, no discharge. [] Neck: Normal range of motion, no tenderness, supple, no stridor. [] Cardiovascular: Tachycardic and irregular heart rate, no murmur [] Lungs & Thorax: Bilateral breath sounds diminished in all lung castaneda with wheezing in all lung castaneda but worse in her left upper and lower lobe. Abdomen: Bowel sounds normal, soft, no tenderness, no masses, no pulsatile masses. [] Skin: Warm, dry, no erythema, no rash. [] Back: No tenderness, no CVA tenderness. [] Extremities: No tenderness, no cyanosis, no clubbing, ROM intact, no edema. [] Neurologic: Alert and oriented X 3, normal motor function, normal sensory function, no focal deficits noted. [] Current Patient Data Vital Signs Vital Signs Date Time Temp Pulse Resp B/P (MAP) Pulse Ox O2 Delivery O2 Flow Rate FiO2 03/26/22 19:53 123 142/72 03/26/22 18:31 91 Room Air 03/26/22 18:17 28 03/26/22 17:36 97.9 97.9 Lab Values Laboratory Tests Test 03/26/22 18:28 03/26/22 18:34 White Blood Count 16.3 x10^3/uL (4.0-11.0) H Red Blood Count 4.74 x10^6/uL (3.50-5.40) Hemoglobin 15.8 g/dL (12.0-15.5) H Hematocrit 45.9 % (36.0-47.0) Mean Corpuscular Volume 97 fL (79-100) Mean Corpuscular Hemoglobin 33 pg (25-35) Mean Corpuscular Hemoglobin Concent 34 g/dL (31-37) Red Cell Distribution Width 14.1 % (11.5-14.5) Platelet Count 272 x10^3/uL (140-400) Neutrophils (%) (Auto) 82 % (31-73) H Lymphocytes (%) (Auto) 12 % (24-48) L Monocytes (%) (Auto) 4 % (0-9) Eosinophils (%) (Auto) 2 % (0-3) Basophils (%) (Auto) 1 % (0-3) Neutrophils # (Auto) 13.3 x10^3/uL (1.8-7.7) H Lymphocytes # (Auto) 1.9 x10^3/uL (1.0-4.8) Monocytes # (Auto) 0.6 x10^3/uL (0.0-1.1) Eosinophils # (Auto) 0.3 x10^3/uL (0.0-0.7) Basophils # (Auto) 0.1 x10^3/uL (0.0-0.2) Segmented Neutrophils % 72 % (35-66) H Band Neutrophils % 8 % (0-9) Lymphocytes % 10 % (24-48) L Atypical Lymphocytes % (Manual) 4 % (0-0) H Monocytes % 4 % (0-10) Eosinophils % 2 % (0-5) Platelet Estimate Adequate (ADEQUATE) Prothrombin Time 17.2 SEC (11.7-14.0) H Prothrombin Time INR 1.5 (0.8-1.1) H Activated Partial Thromboplast Time 34 SEC (24-38) Sodium Level 134 mmol/L (136-145) L Potassium Level 4.4 mmol/L (3.5-5.1) Chloride Level 100 mmol/L (98-107) Carbon Dioxide Level 25 mmol/L (21-32) Anion Gap 9 (6-14) Blood Urea Nitrogen 26 mg/dL (7-20) H Creatinine 1.1 mg/dL (0.6-1.0) H Estimated GFR (Cockcroft-Gault) 46.9 BUN/Creatinine Ratio 24 (6-20) H Glucose Level 162 mg/dL (70-99) H Calcium Level 9.0 mg/dL (8.5-10.1) Magnesium Level 2.1 mg/dL (1.8-2.4) Total Bilirubin 0.8 mg/dL (0.2-1.0) Aspartate Amino Transferase (AST) 16 U/L (15-37) Alanine Aminotransferase (ALT) 23 U/L (14-59) Alkaline Phosphatase 61 U/L (46-116) Troponin I High Sensitivity 12 ng/L (4-50) JK-Qnx-K-Type Natriuretic Peptide 1994 pg/mL (0-449) H Total Protein 6.6 g/dL (6.4-8.2) Albumin 3.0 g/dL (3.4-5.0) L Albumin/Globulin Ratio 0.8 (1.0-1.7) L Thyroid Stimulating Hormone (TSH) 3.586 uIU/mL (0.358-3.74) Influenza Type A Antigen Negative (NEGATIVE) Influenza Type B Antigen Negative (NEGATIVE) SARS-CoV-2 Antigen (Rapid) Negative (NEGATIVE) Laboratory Tests 03/26/22 18:28 Laboratory Tests 03/26/22 18:28 EKG EKG Irregularly irregular rhythm at 126 bpm with 3 PVCs noted and a normal axis no ST elevation or depression with normal T waves Radiology/Procedures Radiology/Procedures [] Course & Med Decision Making Course & Med Decision Making I will check labs and imaging treat her with Solu-Medrol and a DuoNeb and reassess. Unfortunately patient continues to feel quite dyspneic and does have continued bronchospasm on her repeat exams. Her oxygen saturation has stayed normal at 94% but she continues to feel more short of breath. I ordered a continuous albuterol in addition to Ativan and metoprolol. There is no Cardizem drips available at this time and despite the bronchospastic effects of the beta- blockers will have to pursue treating her A. fib with RVR with IV metoprolol at this time. Digoxin and amiodarone are not indicated. Patient admitted to the telemetry floor in guarded condition. Dragon Disclaimer Dragon Disclaimer This electronic medical record was generated, in whole or in part, using a voice recognition dictation system. Departure Departure Impression: Primary Impression: Bronchospasm Additional Impressions: Failure of outpatient treatment Atrial fibrillation with RVR Disposition: ADMITTED INPATIENT Admitting Physician: JOSSELIN (Malcolm) Referrals: ANTHONY GUIDRY MD (PCP) Problem Qualifiers BREANA MCCLURE DO March 26, 2022 18:20
[2022-03-26 18:39] LABS: BASO # 0.1 x10^3/uL (0.0-0.2); BASO % 1 % (0-3); EOS # 0.3 x10^3/uL (0.0-0.7); EOS % 2 % (0-3); HEMATOCRIT 45.9 % (36.0-47.0); HEMOGLOBIN 15.8 g/dL (12.0-15.5); LYMPH # 1.9 x10^3/uL (1.0-4.8); LYMPH % 12 % (24-48); MEAN CORPUSCULAR HEMOGLOBIN 33 pg (25-35); MEAN CORPUSCULAR HGB CONC 34 g/dL (31-37); MEAN CORPUSCULAR VOLUME 97 fL (79-100); MONO # 0.6 x10^3/uL (0.0-1.1); MONO % 4 % (0-9); NEUT # 13.3 x10^3/uL (1.8-7.7); NEUT % 82 % (31-73); PLATELET COUNT 272 x10^3/uL (140-400); RED BLOOD COUNT 4.74 x10^6/uL (3.50-5.40); RED CELL DISTRIBUTION WIDTH 14.1 % (11.5-14.5); WHITE BLOOD COUNT 16.3 x10^3/uL (4.0-11.0)
[2022-03-26 18:49] LABS: PROTHROMBIN TIME PATIENT 17.2 SEC (11.7-14.0)
[2022-03-26 18:52] LABS: CREATININE 1.1 mg/dL (0.6-1.0); GFR 46.9; POTASSIUM 4.4 mmol/L (3.5-5.1)
[2022-03-26 18:57] LABS: INFLUENZA A PATIENT NEGATIVE (NEGATIVE); INFLUENZA B PATIENT NEGATIVE (NEGATIVE)
[2022-03-26 18:58] LABS: ALBUMIN/GLOBULIN RATIO 0.8 (1.0-1.7); TOTAL BILIRUBIN 0.8 mg/dL (0.2-1.0); TOTAL PROTEIN 6.6 g/dL (6.4-8.2)
[2022-03-26 19:14] LABS: % ATYL 4 % (0-0); % BANDS 8 % (0-9); % EOS 2 % (0-5); % LYMPHS 10 % (24-48); % MONOS 4 % (0-10); % SEGS 72 % (35-66); PLT ESTIMATE ADEQUATE (ADEQUATE)
--- NOTE | 2022-03-26 19:56 | NUR ---
Summary report sent via tube system to [address] [place] [address] at 1958. Patient was assigned to inpatient room 676.
--- NOTE | 2022-03-26 19:56 | PDOC1 ---
History and Physical Date of Admission Date of Admission DATE: 03/26/22 TIME: 19:56 Identification/Chief Complaint Chief Complaint Shortness of breath Source Source: Patient History of Present Illness History of Present Illness Ms Flood is an 87 year old female with PMHx A-Fib, High Cholesterol, Hypothyroid, mitral prolapse presenting to the emergency department for evaluation of worsening shortness of breath over the past week and a half. She has had progressively worsening wheezing, non-productive cough and has some associated orthopnea, dyspnea on exertion and conversational dyspnea. She says that she has seen her doctor for this 2 times in last week she was put on an antibiotic and a steroid but she has finished both and she has also been using her nebulizer 3-4 times a day but says that she feels that she is continuing to get worse. No nausea vomiting diarrhea. EKG afib rate approximately 126bpm, no ST elevations or TWI. She was given breathing treatments in ED with minimal improvement. Added pulmicort nebulizers, IV furosemide and admitted for further care. After initial nebs her HR accelerated, improved with IV metoprolol. IV cardizem is not available at this time. Past Medical History Cardiovascular: AFIB, HTN, Hyperlipidemia Pulmonary: No pertinent hx CENTRAL NERVOUS SYSTEM: Migraine GI: No pertinent hx Heme/Onc: No pertinent hx Musculoskeletal: Osteoarthritis Endocrine: Hypothyroidism Past Surgical History Past Surgical History: Cholecystectomy, Hysterectomy, Other Family History Family History: High Cholestrol, Hypertension Social History Smoke: No ALCOHOL: none Current Medications Current Medications Current Medications Albuterol/ Ipratropium (Duoneb) 3 ml 1X ONCE NEB Last administered on 03/26/22at 18:31; Start 03/26/22 at 18:15; Stop 03/26/22 at 18:16; Status DC Methylprednisolone Sodium Succinate (SOLU-Medrol 125MG VIAL) 125 mg 1X ONCE IV Last administered on 03/26/22at 18:32; Start 03/26/22 at 18:15; Stop 03/26/22 at 18:16; Status DC Albuterol Sulfate (Ventolin Neb Soln) 10 mg 1X ONCE CONT NEB ; Start 03/26/22 at 20:00; Stop 03/26/22 at 20:01 Lorazepam (Ativan Inj) 1 mg 1X ONCE IVP Last administered on 03/26/22at 19:47; Start 03/26/22 at 20:00; Stop 03/26/22 at 20:01 Metoprolol Tartrate (Lopressor Vial) 5 mg 1X ONCE IVP Last administered on 03/26/22at 19:53; Start 03/26/22 at 20:00; Stop 03/26/22 at 20:01 Active Scripts Active Guaifenesin Ac Cough Syrup (Guaifenesin/Codeine Phosphate) 473 Ml Liquid 10 Ml PO PRN Q4-6HRS PRN MDD 60 Milliliter(s) Benzonatate 200 Mg Capsule 1 Cap PO PRN TID PRN Prednisone 20 Mg Tablet 2 Tab PO DAILY Proair Hfa Inhaler (Albuterol Sulfate) 8.5 Gm Hfa.aer.ad 2 Puff IH PRN Q4-6HRS PRN Cetirizine Hcl 10 Mg Tablet 1 Tab PO DAILY Flonase Allergy Relief (Fluticasone Propionate) 9.9 Ml [place].susp 2 Sprays NS DAILY 7 Days Mucinex (Guaifenesin) 600 Mg Tablet.er 600 Mg PO BID MDD 1 Tamiflu (Oseltamivir Phosphate) 30 Mg Capsule 30 Mg PO BID MDD 1 Reported Tylenol (Acetaminophen) 325 Mg Tablet 2 Tab PO PRN Q8HRS PRN Fiber (Calcium Polycarbophil) 625 Mg Tablet 625 Mg PO DAILY Vitamin D (Cholecalciferol (Vitamin D3)) 5,000 Unit Capsule 1,000 Unit PO DAILY Inderal Xl (Propranolol Hcl) 120 Mg Cap.er.24h 2 Cap PO DAILY Xarelto (Rivaroxaban) 20 Mg Tablet 20 Mg PO DAILY Simvastatin 10 Mg Tablet 1 Tab PO QHS Levothyroxine Sodium 112 Mcg Tablet 1 Tab PO DAILY Allergies Allergies: Coded Allergies: No Known Drug Allergies (Unverified , 03/16/22) ROS General: YES: Fatigue, Malaise; No: Chills, Night Sweats, Appetite, Other PSYCHOLOGICAL ROS: YES: Anxiety; No: Behavioral Disorder, Concentration difficultie, Decreased libido, Depression, Disorientation, Hallucinations, Hostility, Irritablity, Memory difficulties, Mood Swings, Obsessive thoughts, Physical abuse, Sexual abuse, Sleep disturbances, Suicidal ideation, Other Eyes: No Blurry vision, No Decreased vision, No Double vision, No Dry eyes, No Excessive tearing, No Eye Pain, No Itchy Eyes, No Loss of vision, No Photophobia, No Scotomata, No Uses contacts, No Uses glasses, No Other HEENT: No: Heacaches, Visual Changes, Hearing change, Nasal congestion, Nasal discharge, Oral lesions, Sinus pain, Sore Throat, Epistaxis, Sneezing, Snoring, Tinnitus, Vertigo, Vocal changes, Other ALLERGY AND IMMUNOLOGY: No: Hives, Insect Bite Sensitivity, Itchy/Watery Eyes, Nasal Congestion, Post Nasal Drip, Seasonal Allergies, Other Hematological and Lymphatic: No: Bleeding Problems, Blood Clots, Blood Transfusions, Brusing, Night Sweats, Pallor, Swollen Lymph Nodes, Other ENDOCRINE: No: Breast Changes, Galactorrhea, Hair Pattern Changes, Hot Flashes, Malaise/lethargy, Mood Swings, Palpitations, Polydipsia/polyuria, Skin Changes, Temperature Intolerance, Unexpected Weight Changes, Other Breast: No New/Changing Breast Lumps, No Nipple changes, No Nipple discharge, No Other Respiratory: YES: Cough, Orthopnea, Shortness of breath, SOB with excertion, Tachypnea, Wheezing; No: Hemoptysis, Pleuritic Pain, Sputum Changes, Stridor, Other Cardiovascular: yes Palpitations, yes Orthopnea, yes Paroxysmal Noc. Dyspnea, yes Edema; No Chest Pain, No Lt Headedness, No Other Gastrointestinal: No Nausea, No Vomiting, No Abdominal Pain, No Diarrhea, No Constipation, No Melena, No Hematochezia, No Other Genitourinary: No Dysuria, No Frequency, No Incontinence, No Hematuria, No Retention, No Discharge, No Urgency, No Pain, No Flank Pain, No Other, No , No , No , No , No , No , No Musculoskeletal: No Gait Disturbance, No Joint Pain, No Joint Stiffness, No Joint Swelling, No Muscle Pain, No Muscular Weakness, No Pain In:, No Swelling In:, No Other Neurological: No Behavorial Changes, No Bowel/Bladder ControlChng, No Confusion, No Dizziness, No Gait Disturbance, No Headaches, No Impaired Coord/b alance, No Memory Loss, No Numbness/Tingling, No Seizures, No Speech Problems, No Tremors, No Visual Changes, No Weakness, No Other Skin: No Dry Skin, No Eczema, No Hair Changes, No Lumps, No Mole Changes, No Mottling, No Nail Changes, No Pruritus, No Rash, No Skin Lesion Changes, No Other, No Acne Physical Exam General: Alert, Oriented X3, Cooperative, moderate distress HEENT: Atraumatic, PERRLA, EOMI, Mucous membr. moist/pink Lungs: Other (diffuse wheezing, bibasilar crackles) Heart: irregularly irregular Abdomen: Normal bowel sounds, Soft, No tenderness, No hepatosplenomegaly, No masses Extremities: Other (1+ edema) Skin: No rashes, No breakdown, No significant lesion Neuro: Normal speech, Strength at 5/5 X4 ext, Normal tone, Sensation intact, Cranial nerves 3-12 NL, Reflexes 2+ Psych/Mental Status: Mental status NL, Mood NL, Other (Anxious) Vitals Vitals Vital Signs Date Time Temp Pulse Resp B/P (MAP) Pulse Ox O2 Delivery O2 Flow Rate FiO2 03/26/22 19:53 123 142/72 03/26/22 18:31 91 Room Air 03/26/22 18:17 28 03/26/22 17:36 97.9 97.9 Labs Labs Laboratory Tests Test 03/26/22 18:28 03/26/22 18:34 White Blood Count 16.3 x10^3/uL (4.0-11.0) Red Blood Count 4.74 x10^6/uL (3.50-5.40) Hemoglobin 15.8 g/dL (12.0-15.5) Hematocrit 45.9 % (36.0-47.0) Mean Corpuscular Volume 97 fL (79-100) Mean Corpuscular Hemoglobin 33 pg (25-35) Mean Corpuscular Hemoglobin Concent 34 g/dL (31-37) Red Cell Distribution Width 14.1 % (11.5-14.5) Platelet Count 272 x10^3/uL (140-400) Neutrophils (%) (Auto) 82 % (31-73) Lymphocytes (%) (Auto) 12 % (24-48) Monocytes (%) (Auto) 4 % (0-9) Eosinophils (%) (Auto) 2 % (0-3) Basophils (%) (Auto) 1 % (0-3) Neutrophils # (Auto) 13.3 x10^3/uL (1.8-7.7) Lymphocytes # (Auto) 1.9 x10^3/uL (1.0-4.8) Monocytes # (Auto) 0.6 x10^3/uL (0.0-1.1) Eosinophils # (Auto) 0.3 x10^3/uL (0.0-0.7) Basophils # (Auto) 0.1 x10^3/uL (0.0-0.2) Segmented Neutrophils % 72 % (35-66) Band Neutrophils % 8 % (0-9) Lymphocytes % 10 % (24-48) Atypical Lymphocytes % (Manual) 4 % (0-0) Monocytes % 4 % (0-10) Eosinophils % 2 % (0-5) Platelet Estimate Adequate (ADEQUATE) Prothrombin Time 17.2 SEC (11.7-14.0) Prothromb Time International Ratio 1.5 (0.8-1.1) Activated Partial Thromboplast Time 34 SEC (24-38) Sodium Level 134 mmol/L (136-145) Potassium Level 4.4 mmol/L (3.5-5.1) Chloride Level 100 mmol/L (98-107) Carbon Dioxide Level 25 mmol/L (21-32) Anion Gap 9 (6-14) Blood Urea Nitrogen 26 mg/dL (7-20) Creatinine 1.1 mg/dL (0.6-1.0) Estimated GFR (Cockcroft-Gault) 46.9 BUN/Creatinine Ratio 24 (6-20) Glucose Level 162 mg/dL (70-99) Calcium Level 9.0 mg/dL (8.5-10.1) Total Bilirubin 0.8 mg/dL (0.2-1.0) Aspartate Amino Transf (AST/SGOT) 16 U/L (15-37) Alanine Aminotransferase (ALT/SGPT) 23 U/L (14-59) Alkaline Phosphatase 61 U/L (46-116) Troponin I High Sensitivity 12 ng/L (4-50) XY-Qnb-M-Type Natriuretic Peptide 1994 pg/mL (0-449) Total Protein 6.6 g/dL (6.4-8.2) Albumin 3.0 g/dL (3.4-5.0) Albumin/Globulin Ratio 0.8 (1.0-1.7) Thyroid Stimulating Hormone (TSH) 3.586 uIU/mL (0.358-3.74) Influenza Type A Antigen Negative (NEGATIVE) Influenza Type B Antigen Negative (NEGATIVE) SARS-CoV-2 Antigen (Rapid) Negative (NEGATIVE) Laboratory Tests Test 03/26/22 18:28 03/26/22 18:34 White Blood Count 16.3 x10^3/uL (4.0-11.0) Red Blood Count 4.74 x10^6/uL (3.50-5.40) Hemoglobin 15.8 g/dL (12.0-15.5) Hematocrit 45.9 % (36.0-47.0) Mean Corpuscular Volume 97 fL (79-100) Mean Corpuscular Hemoglobin 33 pg (25-35) Mean Corpuscular Hemoglobin Concent 34 g/dL (31-37) Red Cell Distribution Width 14.1 % (11.5-14.5) Platelet Count 272 x10^3/uL (140-400) Neutrophils (%) (Auto) 82 % (31-73) Lymphocytes (%) (Auto) 12 % (24-48) Monocytes (%) (Auto) 4 % (0-9) Eosinophils (%) (Auto) 2 % (0-3) Basophils (%) (Auto) 1 % (0-3) Neutrophils # (Auto) 13.3 x10^3/uL (1.8-7.7) Lymphocytes # (Auto) 1.9 x10^3/uL (1.0-4.8) Monocytes # (Auto) 0.6 x10^3/uL (0.0-1.1) Eosinophils # (Auto) 0.3 x10^3/uL (0.0-0.7) Basophils # (Auto) 0.1 x10^3/uL (0.0-0.2) Segmented Neutrophils % 72 % (35-66) Band Neutrophils % 8 % (0-9) Lymphocytes % 10 % (24-48) Atypical Lymphocytes % (Manual) 4 % (0-0) Monocytes % 4 % (0-10) Eosinophils % 2 % (0-5) Platelet Estimate Adequate (ADEQUATE) Prothrombin Time 17.2 SEC (11.7-14.0) Prothromb Time International Ratio 1.5 (0.8-1.1) Activated Partial Thromboplast Time 34 SEC (24-38) Sodium Level 134 mmol/L (136-145) Potassium Level 4.4 mmol/L (3.5-5.1) Chloride Level 100 mmol/L (98-107) Carbon Dioxide Level 25 mmol/L (21-32) Anion Gap 9 (6-14) Blood Urea Nitrogen 26 mg/dL (7-20) Creatinine 1.1 mg/dL (0.6-1.0) Estimated GFR (Cockcroft-Gault) 46.9 BUN/Creatinine Ratio 24 (6-20) Glucose Level 162 mg/dL (70-99) Calcium Level 9.0 mg/dL (8.5-10.1) Total Bilirubin 0.8 mg/dL (0.2-1.0) Aspartate Amino Transf (AST/SGOT) 16 U/L (15-37) Alanine Aminotransferase (ALT/SGPT) 23 U/L (14-59) Alkaline Phosphatase 61 U/L (46-116) Troponin I High Sensitivity 12 ng/L (4-50) AF-Uwz-T-Type Natriuretic Peptide 1994 pg/mL (0-449) Total Protein 6.6 g/dL (6.4-8.2) Albumin 3.0 g/dL (3.4-5.0) Albumin/Globulin Ratio 0.8 (1.0-1.7) Thyroid Stimulating Hormone (TSH) 3.586 uIU/mL (0.358-3.74) Influenza Type A Antigen Negative (NEGATIVE) Influenza Type B Antigen Negative (NEGATIVE) SARS-CoV-2 Antigen (Rapid) Negative (NEGATIVE) Images Images Chest radiograph VTE Prophylaxis Ordered VTE Prophylaxis Devices: Yes VTE Pharmacological Prophylaxi: Yes Assessment/Plan Assessment/Plan Acute dyspnea - combination of bronchitis, will treat more aggressively, IV steroids, nebs. Treat CHF as well, IV lasix AFIB - rate not well controlled initially, may need to add digoxin IV overnight. Consult cardiology H/o MVP, may be worsening a cardiac wheeze Acute on chronic diastolic CHF - IV diuresis, follow BMP, mag, consult cardiology h/o migraines - on maxalt Hypothyroidism - cont levothyroxine FEN - Cardiac diet PPX - xarelto FULL CODE Dispo - inpatient Justifications for Admission Other Justification BRIDGETTE MO MD March 26, 2022 19:56
[2022-03-26] MEDS ORDERED: ALBUTEROL SULFATE 2.5 MG/3 ML NEBU. CONT NEB ONE (20:00)
[2022-03-26] MEDS ORDERED: ONDANSETRON PF 4 MG/2 ML VIAL. IVP PRN ×2 (20:00→20:15)
[2022-03-26] MEDS ORDERED: ALBUTEROL SULFATE 2.5 MG/3 ML NEBU. NEB PRN (20:00)
[2022-03-26] MEDS ORDERED: METOPROLOL IV PUSH 5 MG/5 ML VIAL. IVP ONE (20:00)
[2022-03-26] MEDS ORDERED: guaiFENesin DM 200MG/20MG 10 ML SYRUP PO PRN (20:00)
[2022-03-26 20:50] VITALS: BP 172/110
[2022-03-26] MEDS: IPRATRPIUM/ALBUTEROL 0.5/2.5MG 3 ML NEBU. NEB SCH (20:53)
[2022-03-26] MEDS: BUDESONIDE 0.5 MG/2 ML NEBU. NEB SCH (20:54)
[2022-03-26] MEDS: methylPREDNISolone SOD SUCC PF 40 MG/ML VIAL. IV SCH (21:15)
[2022-03-26] MEDS ORDERED: MORPHINE SULFATE 2 MG/ML INJ. IVP PRN (21:15)
[2022-03-26] MEDS: MONTELUKAST SODIUM 10 MG TABLET. PO SCH (21:15)
[2022-03-26] MEDS ORDERED: FUROSEMIDE 40 MG/4 ML VIAL. IVP ONE (21:30)
[2022-03-26] MEDS: METOPROLOL IV PUSH 5 MG/5 ML VIAL. IVP PRN (21:37)
[2022-03-26] MEDS ORDERED: HEPARIN for SUB-Q USE 5,000 UNIT/ML VIAL. SQ SCH (22:00)
[2022-03-26] MEDS ORDERED: ANTI-COAG MONITOR BY PHARMACY. MC PRN (23:00)
[2022-03-26 23:25] VITALS: BP 122/78
[2022-03-27 03:49] VITALS: BP 145/92
[2022-03-27] MEDS: LEVOTHYROXINE 112 MCG TABLET PO SCH (04:50)
[2022-03-27] MEDS: methylPREDNISolone SOD SUCC PF 40 MG/ML VIAL. IV SCH ×3 (04:51→20:53)
[2022-03-27 05:57] LABS: BASO % 0 % (0-3); EOS % 0 % (0-3); LYMPH # 1.3 x10^3/uL (1.0-4.8); LYMPH % 12 % (24-48); MEAN CORPUSCULAR HEMOGLOBIN 33 pg (25-35); MEAN CORPUSCULAR HGB CONC 34 g/dL (31-37); MEAN CORPUSCULAR VOLUME 98 fL (79-100); MONO # 0.1 x10^3/uL (0.0-1.1); MONO % 1 % (0-9); NEUT # 10.1 x10^3/uL (1.8-7.7); NEUT % 87 % (31-73); PLATELET COUNT 225 x10^3/uL (140-400); RED CELL DISTRIBUTION WIDTH 14.1 % (11.5-14.5); WHITE BLOOD COUNT 11.5 x10^3/uL (4.0-11.0)
[2022-03-27 06:11] LABS: CALCIUM 8.7 mg/dL (8.5-10.1); CREATININE 1.5 mg/dL (0.6-1.0); GFR 32.8; POTASSIUM 4.6 mmol/L (3.5-5.1)
[2022-03-27 07:00] VITALS: BP 157/97
--- NOTE | 2022-03-27 07:38 | PDOC2 ---
KENTON SINGH MATERIAL LISTER 03/27/22 0738: CARDIAC CONSULT DATE OF CONSULT Date of Consult DATE: 03/27/22 TIME: 07:30 REASON FOR CONSULT Reason for Consult: AFIB, bronchitis REFERRING PHYSICIAN Referring Physician: Malcolm SOURCE Source: Chart review, Patient HISTORY OF PRESENT ILLNESS HISTORY OF PRESENT ILLNESS This is a pleasant 87 yo male admitted for complains of shortness of breath. She has been more SOA starting Saturday. Also started having wheezing episodes and at times intractable coughing. Denies any nausea or vomiting. No fever or chills. Denies any allergy or exposure to environmental triggers. Denies any palpitations but upon admission she was noted with AFIB RVR. No significant leg swelling. She has been taking propranolol and xarelto. No presyncopal spells or pasing out. PAST MEDICAL HISTORY Cardiovascular: AFIB, HTN, Hyperlipidemia, Other (Venous insufficiency) Pulmonary: No pertinent hx CENTRAL NERVOUS SYSTEM: Migraine GI: Hemorrhoids Heme/Onc: No pertinent hx, Other (xarelto use) Hepatobiliary: No pertinent hx Psych: No pertinent hx Musculoskeletal: Osteoarthritis Rheumatologic: No pertinent hx Infectious disease: No pertinent hx ENT: No pertinent hx Renal/: No pertinent hx Endocrine: Hypothyroidism Dermatology: No pertinent hx PAST SURGICAL HISTORY Past Surgical History: Hysterectomy, Other (hemorrhoidectomy, vein stripping) FAMILY HISTORY Family History noncontributory to CV SOCIAL HISTORY Smoke: No ALCOHOL: none Drugs: None Lives: with Family CURRENT MEDICATIONS CURRENT MEDICATIONS Current Medications Medications (Trade) Dose Ordered Sig/Radha Route PRN Reason Start Time Stop Time Status Last Admin Dose Admin Albuterol/ Ipratropium (Duoneb) 3 ml 1X ONCE NEB 03/26/22 18:15 03/26/22 18:16 DC 03/26/22 18:31 Methylprednisolone Sodium Succinate (SOLU-Medrol 125MG VIAL) 125 mg 1X ONCE IV 03/26/22 18:15 03/26/22 18:16 DC 03/26/22 18:32 Lorazepam (Ativan Inj) 1 mg 1X ONCE IVP 03/26/22 20:00 03/26/22 20:01 DC 03/26/22 19:47 Metoprolol Tartrate (Lopressor Vial) 5 mg 1X ONCE IVP 03/26/22 20:00 03/26/22 20:01 DC 03/26/22 19:53 Heparin Sodium (Porcine) (Heparin Sodium) 5,000 unit Q8HRS SQ 03/26/22 22:00 03/26/22 22:44 DC 03/26/22 21:26 Albuterol/ Ipratropium (Duoneb) 3 ml RTQID NEB 03/26/22 20:00 03/26/22 20:53 Methylprednisolone Sodium Succinate (SOLU-Medrol 40MG VIAL) 80 mg Q8HRS IV 03/26/22 22:00 03/27/22 04:51 Montelukast Sodium (Singulair) 10 mg QHS PO 03/26/22 21:00 03/26/22 21:15 Metoprolol Tartrate (Lopressor Vial) 5 mg PRN Q6HRS PRN IVP tachy > 110bpm 03/26/22 20:00 03/26/22 21:37 Budesonide (Pulmicort) 0.5 mg RTBID NEB 03/26/22 20:15 03/26/22 20:54 Morphine Sulfate (Morphine Sulfate) 2 mg PRN Q3HRS PRN IVP PAIN 03/26/22 21:15 03/26/22 21:16 Furosemide (Lasix) 40 mg 1X ONCE IVP 03/26/22 21:30 03/26/22 21:31 DC 03/26/22 21:15 Levothyroxine Sodium (Synthroid) 112 mcg DAILY06 PO 03/27/22 06:00 03/27/22 04:50 Info (Anti-Coagulation Monitoring By Pharmacy) 1 each PRN DAILY PRN MC PER PROTOCOL 03/26/22 23:00 03/27/22 02:47 ALLERGIES ALLERGIES: Coded Allergies: No Known Drug Allergies (Unverified , 03/16/22) ROS Review of System 14 point ROS evaluated with pertinent positives noted per HPI PHYSICAL EXAM General: Alert, Oriented X3, Cooperative, No acute distress HEENT: Atraumatic, Mucous membr. moist/pink Lungs: Other (diffuse wheeze) Heart: Other (AFIB, 2/6 systolic murmur to LLS border) Abdomen: Soft, No tenderness Extremities: No cyanosis, Other (LE Varicosities) Skin: No breakdown, No significant lesion Neuro: Normal speech, Sensation intact Psych/Mental Status: Mental status NL, Mood NL MUSCULOSKELETAL: Osteoarthritic changes both hands VITALS/I&O VITALS/I&O: Vital Signs Date Time Temp Pulse Resp B/P (MAP) Pulse Ox O2 Delivery O2 Flow Rate FiO2 03/27/22 03:49 97.9 75 28 145/92 (109) 99 Nasal Cannula 2.0 97.9 I & O 03/26/22 03/26/22 03/27/22 15:00 23:00 07:00 Intake Total 0 ml 100 ml Balance 0 ml 100 ml LABS Lab: Laboratory Tests Test 03/26/22 18:28 03/26/22 18:34 03/27/22 05:35 White Blood Count 16.3 x10^3/uL (4.0-11.0) H 11.5 x10^3/uL (4.0-11.0) H Red Blood Count 4.74 x10^6/uL (3.50-5.40) 4.80 x10^6/uL (3.50-5.40) Hemoglobin 15.8 g/dL (12.0-15.5) H 16.0 g/dL (12.0-15.5) H Hematocrit 45.9 % (36.0-47.0) 47.0 % (36.0-47.0) Mean Corpuscular Volume 97 fL (79-100) 98 fL (79-100) Mean Corpuscular Hemoglobin 33 pg (25-35) 33 pg (25-35) Mean Corpuscular Hemoglobin Concent 34 g/dL (31-37) 34 g/dL (31-37) Red Cell Distribution Width 14.1 % (11.5-14.5) 14.1 % (11.5-14.5) Platelet Count 272 x10^3/uL (140-400) 225 x10^3/uL (140-400) Neutrophils (%) (Auto) 82 % (31-73) H 87 % (31-73) H Lymphocytes (%) (Auto) 12 % (24-48) L 12 % (24-48) L Monocytes (%) (Auto) 4 % (0-9) 1 % (0-9) Eosinophils (%) (Auto) 2 % (0-3) 0 % (0-3) Basophils (%) (Auto) 1 % (0-3) 0 % (0-3) Neutrophils # (Auto) 13.3 x10^3/uL (1.8-7.7) H 10.1 x10^3/uL (1.8-7.7) H Lymphocytes # (Auto) 1.9 x10^3/uL (1.0-4.8) 1.3 x10^3/uL (1.0-4.8) Monocytes # (Auto) 0.6 x10^3/uL (0.0-1.1) 0.1 x10^3/uL (0.0-1.1) Eosinophils # (Auto) 0.3 x10^3/uL (0.0-0.7) 0.0 x10^3/uL (0.0-0.7) Basophils # (Auto) 0.1 x10^3/uL (0.0-0.2) 0.0 x10^3/uL (0.0-0.2) Segmented Neutrophils % 72 % (35-66) H Band Neutrophils % 8 % (0-9) Lymphocytes % 10 % (24-48) L Atypical Lymphocytes % (Manual) 4 % (0-0) H Monocytes % 4 % (0-10) Eosinophils % 2 % (0-5) Platelet Estimate Adequate (ADEQUATE) Prothrombin Time 17.2 SEC (11.7-14.0) H Prothrombin Time INR 1.5 (0.8-1.1) H Activated Partial Thromboplast Time 34 SEC (24-38) Sodium Level 134 mmol/L (136-145) L 138 mmol/L (136-145) Potassium Level 4.4 mmol/L (3.5-5.1) 4.6 mmol/L (3.5-5.1) Chloride Level 100 mmol/L (98-107) 97 mmol/L (98-107) L Carbon Dioxide Level 25 mmol/L (21-32) 32 mmol/L (21-32) Anion Gap 9 (6-14) 9 (6-14) Blood Urea Nitrogen 26 mg/dL (7-20) H 27 mg/dL (7-20) H Creatinine 1.1 mg/dL (0.6-1.0) H 1.5 mg/dL (0.6-1.0) H Estimated GFR (Cockcroft-Gault) 46.9 32.8 BUN/Creatinine Ratio 24 (6-20) H Glucose Level 162 mg/dL (70-99) H 171 mg/dL (70-99) H Calcium Level 9.0 mg/dL (8.5-10.1) 8.7 mg/dL (8.5-10.1) Magnesium Level 2.1 mg/dL (1.8-2.4) Total Bilirubin 0.8 mg/dL (0.2-1.0) Aspartate Amino Transferase (AST) 16 U/L (15-37) Alanine Aminotransferase (ALT) 23 U/L (14-59) Alkaline Phosphatase 61 U/L (46-116) Troponin I High Sensitivity 12 ng/L (4-50) GB-Gmq-V-Type Natriuretic Peptide 1994 pg/mL (0-449) H Total Protein 6.6 g/dL (6.4-8.2) Albumin 3.0 g/dL (3.4-5.0) L Albumin/Globulin Ratio 0.8 (1.0-1.7) L Thyroid Stimulating Hormone (TSH) 3.586 uIU/mL (0.358-3.74) Influenza Type A Antigen Negative (NEGATIVE) Influenza Type B Antigen Negative (NEGATIVE) SARS-CoV-2 Antigen (Rapid) Negative (NEGATIVE) Laboratory Tests 03/26/22 18:28 03/27/22 05:35 Laboratory Tests 03/26/22 18:28 03/27/22 05:35 ECHOCARDIOGRAM ECHOCARDIOGRAM <Conclusion> The left ventricular systolic function is normal. Estimated ejection fraction 55%. There is normal LV segmental wall motion. Moderate biatrial dilatation. Mild mitral regurgitation. Mild tricuspid regurgitation. Estimated PAP 45 mmHg. There is no evidence of significant pericardial effusion. DATE: 03/14/22 1228 STRESS TEST STRESS TEST Conclusion 1. Regadenoson cardioisotope stress test did not show any evidence of ischemia or infarct. 2. The left ventricle systolic function was calculated at 21%. However, this might be spuriously low due to the difficulty gating with atrial fibrillation. Recommend checking 2D echocardiogram. 3. Low risk for cardiac events. DATE: 03/14/22 1216 ASSESSMENT/PLAN ASSESSMENT/PLAN 1. AFIB RVR: appears to be chronic. RVR likely ptoentiated by bronchospasm and intractable coughing spells. Rate better 2. Acute on chronic diastolic CHF: compensated. Precipitated by pulmonary issue and RVR 3. MAREN 4. Hypertension: controlled 5. Hyperlipidemia 6. Hypothyroidism: on replacement 7. Obesity 8. Acute bronchitis 9. Hyperglycemia: per PCP Recommendations 1. Hold any BB as she continues to have audible wheezing. Start cardizem 2. Continue xarelto for stroke prevention 3. Supportive care. No further cardiac testing 4. Continue pulmonary optimization per pulmonary GISSELLE MOTT MD 03/28/22 1220: CARDIAC CONSULT ASSESSMENT/PLAN ASSESSMENT/PLAN Late entry for 03/27/2022 Patient seen and examined. Agree with above nurse practitioner note KENTON SINGH APRN March 27, 2022 07:38 GISSELLE MOTT MD March 28, 2022 12:20
[2022-03-27] MEDS: BUDESONIDE 0.5 MG/2 ML NEBU. NEB SCH ×2 (07:42→21:02)
[2022-03-27] MEDS: IPRATRPIUM/ALBUTEROL 0.5/2.5MG 3 ML NEBU. NEB SCH ×4 (07:42→21:02)
[2022-03-27] MEDS: RIVAROXABAN 10 MG TABLET. PO SCH ×2 (07:49→09:56)
[2022-03-27] MEDS ORDERED: IPRATRPIUM/ALBUTEROL 0.5/2.5MG 3 ML NEBU. NEB SCH (08:00)
[2022-03-27] MEDS ORDERED: PROPRANOLOL ER 80 MG CAP.ER.24H. PO SCH (09:00)
[2022-03-27] MEDS: METOPROLOL IV PUSH 5 MG/5 ML VIAL. IVP PRN (09:12)
--- NOTE | 2022-03-27 09:52 | PDOC ---
[employer] PROGRESS NOTE Date of Service DOS: DATE: 03/27/22 TIME: 09:04 Chief Complaint Chief Complaint Acute dyspnea - combination of bronchitis, will treat more aggressively, IV steroids, nebs. Treat CHF as well, IV lasix AFIB - rate not well controlled initially, may need to add digoxin IV overnight. Consult cardiology. Need alternative beta-iza. H/o MVP, may be worsening a cardiac wheeze Acute on chronic diastolic CHF - IV diuresis, follow BMP, mag, consult cardiology h/o migraines - on maxalt, inderal Hypothyroidism - cont levothyroxine FEN - Cardiac diet PPX - xarelto FULL CODE Dispo - inpatient History of Present Illness History of Present Illness Ms Flood is an 87 year old female with PMHx A-Fib, High Cholesterol, Hypothyroid, mitral prolapse presenting to the emergency department for evaluation of worsening shortness of breath over the past week and a half. She has had progressively worsening wheezing, non-productive cough and has some associated orthopnea, dyspnea on exertion and conversational dyspnea. She says that she has seen her doctor for this 2 times in last week she was put on an antibiotic and a steroid but she has finished both and she has also been using her nebulizer 3-4 times a day but says that she feels that she is continuing to get worse. No nausea vomiting diarrhea. EKG afib rate approximately 126bpm, no ST elevations or TWI. She was given breathing treatments in ED with minimal improvement. Added pulmicort nebulizers, IV furosemide and admitted for further care. After initial nebs her HR accelerated, improved with IV metoprolol. IV cardizem is not available at this time. 03/27: Creatinine up to 1.5. Wheezing is still present. Still in A. fib blood pressure is elevated as well. Discussed with and son at bedside need to continue aggressive nebulizers Vitals/I&O Vitals/I&O: Vital Signs Date Time Temp Pulse Resp B/P (MAP) Pulse Ox O2 Delivery O2 Flow Rate FiO2 03/27/22 07:46 96 Nasal Cannula 3.0 03/27/22 03:49 97.9 75 28 145/92 (109) 97.9 I & O 03/26/22 03/26/22 03/27/22 15:00 23:00 07:00 Intake Total 0 ml 100 ml Balance 0 ml 100 ml Physical Exam General: Alert, Oriented X3, Cooperative, moderate distress Abdomen: Normal bowel sounds, Soft, No tenderness, No hepatosplenomegaly, No masses Extremities: Other (1+ edema) Skin: No rashes, No breakdown, No significant lesion Labs Labs: Laboratory Tests Test 03/26/22 18:28 03/26/22 18:34 03/27/22 05:35 White Blood Count 16.3 x10^3/uL (4.0-11.0) 11.5 x10^3/uL (4.0-11.0) Red Blood Count 4.74 x10^6/uL (3.50-5.40) 4.80 x10^6/uL (3.50-5.40) Hemoglobin 15.8 g/dL (12.0-15.5) 16.0 g/dL (12.0-15.5) Hematocrit 45.9 % (36.0-47.0) 47.0 % (36.0-47.0) Mean Corpuscular Volume 97 fL (79-100) 98 fL (79-100) Mean Corpuscular Hemoglobin 33 pg (25-35) 33 pg (25-35) Mean Corpuscular Hemoglobin Concent 34 g/dL (31-37) 34 g/dL (31-37) Red Cell Distribution Width 14.1 % (11.5-14.5) 14.1 % (11.5-14.5) Platelet Count 272 x10^3/uL (140-400) 225 x10^3/uL (140-400) Neutrophils (%) (Auto) 82 % (31-73) 87 % (31-73) Lymphocytes (%) (Auto) 12 % (24-48) 12 % (24-48) Monocytes (%) (Auto) 4 % (0-9) 1 % (0-9) Eosinophils (%) (Auto) 2 % (0-3) 0 % (0-3) Basophils (%) (Auto) 1 % (0-3) 0 % (0-3) Neutrophils # (Auto) 13.3 x10^3/uL (1.8-7.7) 10.1 x10^3/uL (1.8-7.7) Lymphocytes # (Auto) 1.9 x10^3/uL (1.0-4.8) 1.3 x10^3/uL (1.0-4.8) Monocytes # (Auto) 0.6 x10^3/uL (0.0-1.1) 0.1 x10^3/uL (0.0-1.1) Eosinophils # (Auto) 0.3 x10^3/uL (0.0-0.7) 0.0 x10^3/uL (0.0-0.7) Basophils # (Auto) 0.1 x10^3/uL (0.0-0.2) 0.0 x10^3/uL (0.0-0.2) Segmented Neutrophils % 72 % (35-66) Band Neutrophils % 8 % (0-9) Lymphocytes % 10 % (24-48) Atypical Lymphocytes % (Manual) 4 % (0-0) Monocytes % 4 % (0-10) Eosinophils % 2 % (0-5) Platelet Estimate Adequate (ADEQUATE) Prothrombin Time 17.2 SEC (11.7-14.0) Prothromb Time International Ratio 1.5 (0.8-1.1) Activated Partial Thromboplast Time 34 SEC (24-38) Sodium Level 134 mmol/L (136-145) 138 mmol/L (136-145) Potassium Level 4.4 mmol/L (3.5-5.1) 4.6 mmol/L (3.5-5.1) Chloride Level 100 mmol/L (98-107) 97 mmol/L (98-107) Carbon Dioxide Level 25 mmol/L (21-32) 32 mmol/L (21-32) Anion Gap 9 (6-14) 9 (6-14) Blood Urea Nitrogen 26 mg/dL (7-20) 27 mg/dL (7-20) Creatinine 1.1 mg/dL (0.6-1.0) 1.5 mg/dL (0.6-1.0) Estimated GFR (Cockcroft-Gault) 46.9 32.8 BUN/Creatinine Ratio 24 (6-20) Glucose Level 162 mg/dL (70-99) 171 mg/dL (70-99) Calcium Level 9.0 mg/dL (8.5-10.1) 8.7 mg/dL (8.5-10.1) Magnesium Level 2.1 mg/dL (1.8-2.4) Total Bilirubin 0.8 mg/dL (0.2-1.0) Aspartate Amino Transf (AST/SGOT) 16 U/L (15-37) Alanine Aminotransferase (ALT/SGPT) 23 U/L (14-59) Alkaline Phosphatase 61 U/L (46-116) Troponin I High Sensitivity 12 ng/L (4-50) SX-Xbp-G-Type Natriuretic Peptide 1994 pg/mL (0-449) Total Protein 6.6 g/dL (6.4-8.2) Albumin 3.0 g/dL (3.4-5.0) Albumin/Globulin Ratio 0.8 (1.0-1.7) Thyroid Stimulating Hormone (TSH) 3.586 uIU/mL (0.358-3.74) Influenza Type A Antigen Negative (NEGATIVE) Influenza Type B Antigen Negative (NEGATIVE) SARS-CoV-2 Antigen (Rapid) Negative (NEGATIVE) Assessment and Plan Assessmemt and Plan Problems Medical Problems: (1) Atrial fibrillation with RVR Status: Acute (2) Bronchospasm Status: Acute (3) Failure of outpatient treatment Status: Acute Comment Review of Relevant I have reviewed the following items forrest (where applicable) has been applied. Medications: Current Medications Medications (Trade) Dose Ordered Sig/Radha Route PRN Reason Start Time Stop Time Status Last Admin Dose Admin Albuterol/ Ipratropium (Duoneb) 3 ml 1X ONCE NEB 03/26/22 18:15 03/26/22 18:16 DC 03/26/22 18:31 Methylprednisolone Sodium Succinate (SOLU-Medrol 125MG VIAL) 125 mg 1X ONCE IV 03/26/22 18:15 03/26/22 18:16 DC 03/26/22 18:32 Lorazepam (Ativan Inj) 1 mg 1X ONCE IVP 03/26/22 20:00 03/26/22 20:01 DC 03/26/22 19:47 Metoprolol Tartrate (Lopressor Vial) 5 mg 1X ONCE IVP 03/26/22 20:00 03/26/22 20:01 DC 03/26/22 19:53 Heparin Sodium (Porcine) (Heparin Sodium) 5,000 unit Q8HRS SQ 03/26/22 22:00 03/26/22 22:44 DC 03/26/22 21:26 Albuterol/ Ipratropium (Duoneb) 3 ml RTQID NEB 03/26/22 20:00 03/27/22 07:42 Methylprednisolone Sodium Succinate (SOLU-Medrol 40MG VIAL) 80 mg Q8HRS IV 03/26/22 22:00 03/27/22 04:51 Montelukast Sodium (Singulair) 10 mg QHS PO 03/26/22 21:00 03/26/22 21:15 Metoprolol Tartrate (Lopressor Vial) 5 mg PRN Q6HRS PRN IVP tachy > 110bpm 03/26/22 20:00 03/26/22 21:37 Budesonide (Pulmicort) 0.5 mg RTBID NEB 03/26/22 20:15 03/27/22 07:42 Morphine Sulfate (Morphine Sulfate) 2 mg PRN Q3HRS PRN IVP PAIN 03/26/22 21:15 03/26/22 21:16 Furosemide (Lasix) 40 mg 1X ONCE IVP 03/26/22 21:30 03/26/22 21:31 DC 03/26/22 21:15 Levothyroxine Sodium (Synthroid) 112 mcg DAILY06 PO 03/27/22 06:00 03/27/22 04:50 Info (Anti-Coagulation Monitoring By Pharmacy) 1 each PRN DAILY PRN MC PER PROTOCOL 03/26/22 23:00 03/27/22 02:47 Justifications for Admission Other Justification BRIDGETTE MO MD March 27, 2022 09:52
[2022-03-27 11:00] VITALS: BP 132/81
--- NOTE | 2022-03-27 12:22 | RAD ---
EXAMINATION: XR CHEST 1V CLINICAL HISTORY: Shortness of breath. EXAM DATE/TIME: 03/26/2022 7:07 PM COMPARISON: 03/16/2022 FINDINGS: Lines, Tubes, and Devices: None. Cardiomediastinal Silhouette: Stable heart size. Aortic atherosclerotic calcification. Lungs and Pleura: Mild bibasilar patchy opacities. Nonspecific interstitial prominence, similar to pr ior study and likely chronic. No evidence of pleural effusion. Bones and Soft Tissues: Degenerative changes in the thoracic spine. IMPRESSION: Mild bibasilar patchy airspace disease. Electronically signed by: Hema Mitchell DO (03/26/2022 8:40 PM) CARYN
--- NOTE | 2022-03-27 12:22 | CONS ---
DATE OF CONSULTATION: 03/27/2022 PULMONARY CONSULTATION ATTENDING PHYSICIAN: Dr. Justin Fowler. REASON FOR CONSULTATION: Bronchospasm. HISTORY OF PRESENT ILLNESS: The patient is an 87-year-old female with past medical history of atrial fibrillation. She has hypothyroidism and mitral valve prolapse. She has no significant tobacco use. She presented to the hospital with complaint of a cough, which has been mostly nonproductive for the last 9-10 days. This is associated with some shortness of breath and wheezing. The patient denies any known history of asthma. Denies any headaches, no nausea, vomiting, no diarrhea. The patient was seen in the hospital and hospitalized. She was also noted to be in atrial fibrillation with RVR. Her COVID is negative and influenza negative. Chest x-ray did not reveal any infiltrates. PAST MEDICAL HISTORY: History of atrial fibrillation, hypertension, hyperlipidemia. History of osteoarthritis and hypothyroidism. PAST SURGICAL HISTORY: Cholecystectomy and hysterectomy. FAMILY HISTORY: Dyslipidemia and hypertension. SOCIAL HISTORY: Nonsmoker. ALLERGIES: None. REVIEW OF SYSTEMS: Twelve-point system obtained. Pertinent positives discussed in my present illness, otherwise noncontributory. All systems that were negative were reviewed as well. MEDICATIONS: Reviewed as listed in the MRAD including Xarelto, Cardizem, IV Solu-Medrol, Pulmicort and DuoNebs. PHYSICAL EXAMINATION: VITAL SIGNS: Reviewed. Blood pressure 157/97. Pulse ox 99% on 2 liters, afebrile. NECK: Supple. LUNGS: With diffuse bilateral exploratory wheezes. CARDIOVASCULAR: With a regular rate. ABDOMEN: Soft, nontender. EXTREMITIES: Which are cold and some nonpitting edema. LABORATORY DATA: Reviewed. BUN 27, creatinine 1.5. INR 1.5. White cell count 11.5. It was 16.3 earlier. IMPRESSION: 1. Dyspnea with acute hypoxic respiratory failure secondary to multifactorial etiologies including atrial fibrillation with rapid ventricular response and bronchospasm. 2. Bronchospasm. Likely triggered by acute bronchitis. No known history of asthma and no significant tobacco use. Chest x-ray without any obvious congestive heart failure. She may have developed reactive airway disease in her adult life. 3. Atrial fibrillation with rapid ventricular response, now rate controlled. 4. Chronic use of Xarelto for atrial fibrillation. RECOMMENDATIONS: 1. Discussed with the patient and the son and Dr. Fowler. 2. Continue present oxygen, keep saturation 92% and above. 3. Continue with IV Solu-Medrol. 4. Continue with DuoNebs and Pulmicort. 5. PFTs as an outpatient. 6. We will follow along with you. NIGA DR: Siobhan TID: [id number]
--- NOTE | 2022-03-27 12:22 | EKG ---
[facility] [address] [place] [address] Test Date: 2022-03-26 Test Time: 18:53:11 Pat Name: KAYLYN TOMAS Department: Room: 6 Gender: F Diesel Engine Assembler: : 1935 Requested By: BREANA MCCLURE Order Number: [id number] Reading MD: Marck Malloy Measurements Intervals [place] Rate: 126 P: [place]: QRS: 18 QRSD: 70 T: 4 QT: 316 QTc: 465 Interpretive Statements ATRIAL FIBRILLATION WITH RVR VENTRICULAR PREMATURE COMPLEX(ES) ST & T ABNORMALITY, CONSIDER INFEROLATERAL ISCHEMIA OR LEFT VENTRICULAR STRAIN ABNORMAL ECG RI6.02 No previous ECG available for comparison Electronically Signed On 03-28-2022 17:14:49 CDT by Marck Malloy
[2022-03-27 15:00] VITALS: BP 116/66
--- NOTE | 2022-03-27 16:31 | NUR ---
SS following for discharge planning. SS reviewed pt chart and discussed with pt RN. Pt is from home with son and is currently on room air. COVID19 negative. PT/OT ordered. Pulmonology and Cardiology following. Pt on IV Solu-Medrol. SS will continue to follow for discharge planning.
[2022-03-27 19:45] VITALS: BP 135/95
[2022-03-27] MEDS: MONTELUKAST SODIUM 10 MG TABLET. PO SCH (20:52)
[2022-03-27] MEDS: ACETAMINOPHEN 325 MG TABLET. PO PRN (20:52)
[2022-03-27 22:56] VITALS: BP 137/83
[2022-03-28 03:25] LABS: HEMOGLOBIN A1C 5.7 % (4.8-5.6)
[2022-03-28 04:40] VITALS: BP 173/90
[2022-03-28 07:00] VITALS: BP 134/69
[2022-03-28] MEDS: IPRATRPIUM/ALBUTEROL 0.5/2.5MG 3 ML NEBU. NEB SCH ×4 (07:17→21:17)
[2022-03-28] MEDS: BUDESONIDE 0.5 MG/2 ML NEBU. NEB SCH ×2 (07:18→21:17)
[2022-03-28] MEDS: methylPREDNISolone SOD SUCC PF 40 MG/ML VIAL. IV SCH ×3 (08:00→22:24)
[2022-03-28] MEDS: LEVOTHYROXINE 112 MCG TABLET PO SCH (08:00)
[2022-03-28] MEDS: RIVAROXABAN 10 MG TABLET. PO SCH (08:10)
[2022-03-28] MEDS ORDERED: oxyCODONE IR 5 MG TABLET PO PRN (09:45)
--- NOTE | 2022-03-28 10:11 | PDOC ---
[employer] PROGRESS NOTE Date of Service DOS: DATE: 03/28/22 TIME: 10:06 Chief Complaint Chief Complaint Acute dyspnea - combination of bronchitis, will treat more aggressively, IV steroids, nebs. Treat CHF as well, IV lasix AFIB - rate not well controlled initially, may need to add digoxin IV overnight. Consult cardiology. Need alternative beta-iza. H/o MVP, may be worsening a cardiac wheeze Acute on chronic diastolic CHF - IV diuresis, follow BMP, mag, consult cardiology h/o migraines - on maxalt, inderal Hypothyroidism - cont levothyroxine FEN - Cardiac diet PPX - xarelto FULL CODE Dispo - inpatient History of Present Illness History of Present Illness Ms Flood is an 87 year old female with PMHx A-Fib, High Cholesterol, Hypothyroid, mitral prolapse presenting to the emergency department for evaluation of worsening shortness of breath over the past week and a half. She has had progressively worsening wheezing, non-productive cough and has some associated orthopnea, dyspnea on exertion and conversational dyspnea. She says that she has seen her doctor for this 2 times in last week she was put on an antibiotic and a steroid but she has finished both and she has also been using her nebulizer 3-4 times a day but says that she feels that she is continuing to get worse. No nausea vomiting diarrhea. EKG afib rate approximately 126bpm, no ST elevations or TWI. She was given breathing treatments in ED with minimal improvement. Added pulmicort nebulizers, IV furosemide and admitted for further care. After initial nebs her HR accelerated, improved with IV metoprolol. IV cardizem is not available at this time. 03/27: Creatinine up to 1.5. Wheezing is still present. Still in A. fib blood pressure is elevated as well. Discussed with and son at bedside need to continue aggressive nebulizers 03/28: Still in A. fib. Still hypoxic has a dry mouth. Very weak has been recommended to go [facility]. Discussed with family bedside Vitals/I&O Vitals/I&O: Vital Signs Date Time Temp Pulse Resp B/P (MAP) Pulse Ox O2 Delivery O2 Flow Rate FiO2 03/28/22 08:10 87 173/90 03/28/22 08:00 Nasal Cannula 2.0 03/28/22 07:18 97 03/28/22 07:00 97.4 20 97.4 I & O 03/27/22 03/27/22 03/28/22 15:00 23:00 07:00 Intake Total 0 ml 600 ml Output Total 550 ml 400 ml Balance 0 ml -550 ml 200 ml Physical Exam General: Alert, Oriented X3, Cooperative, No acute distress Heart: Other (AFIB, 2/6 systolic murmur to LLS border) Abdomen: Soft, No tenderness Extremities: No cyanosis, Other (LE Varicosities) Skin: No breakdown, No significant lesion Assessment and Plan Assessmemt and Plan Problems Medical Problems: (1) Atrial fibrillation with RVR Status: Acute (2) Bronchospasm Status: Acute (3) Failure of outpatient treatment Status: Acute Comment Review of Relevant I have reviewed the following items forrest (where applicable) has been applied. Justifications for Admission Other Justification BRIDGETTE MO MD March 28, 2022 10:10
--- NOTE | 2022-03-28 10:27 | PDOC ---
PULMONARY PROGRESS NOTES DATE: 03/28/22 TIME: 10:24 Subjective Wheezing is better. Still has a cough but unable to bring up sputum. Vitals Vital Signs Date Time Temp Pulse Resp B/P (MAP) Pulse Ox O2 Delivery O2 Flow Rate FiO2 03/28/22 08:10 87 173/90 03/28/22 08:00 Nasal Cannula 2.0 03/28/22 07:18 97 03/28/22 07:00 97.4 20 97.4 General: Alert, No acute distress Lungs: Wheezing (Mild.) Cardiovascular: S1 Abdomen: Soft Neuro Exam: Alert Extremities: No Edema Skin: Warm Labs Laboratory Tests Test 03/26/22 18:28 03/26/22 18:34 03/27/22 05:35 White Blood Count 16.3 x10^3/uL (4.0-11.0) 11.5 x10^3/uL (4.0-11.0) Red Blood Count 4.74 x10^6/uL (3.50-5.40) 4.80 x10^6/uL (3.50-5.40) Hemoglobin 15.8 g/dL (12.0-15.5) 16.0 g/dL (12.0-15.5) Hematocrit 45.9 % (36.0-47.0) 47.0 % (36.0-47.0) Mean Corpuscular Volume 97 fL (79-100) 98 fL (79-100) Mean Corpuscular Hemoglobin 33 pg (25-35) 33 pg (25-35) Mean Corpuscular Hemoglobin Concent 34 g/dL (31-37) 34 g/dL (31-37) Red Cell Distribution Width 14.1 % (11.5-14.5) 14.1 % (11.5-14.5) Platelet Count 272 x10^3/uL (140-400) 225 x10^3/uL (140-400) Neutrophils (%) (Auto) 82 % (31-73) 87 % (31-73) Lymphocytes (%) (Auto) 12 % (24-48) 12 % (24-48) Monocytes (%) (Auto) 4 % (0-9) 1 % (0-9) Eosinophils (%) (Auto) 2 % (0-3) 0 % (0-3) Basophils (%) (Auto) 1 % (0-3) 0 % (0-3) Neutrophils # (Auto) 13.3 x10^3/uL (1.8-7.7) 10.1 x10^3/uL (1.8-7.7) Lymphocytes # (Auto) 1.9 x10^3/uL (1.0-4.8) 1.3 x10^3/uL (1.0-4.8) Monocytes # (Auto) 0.6 x10^3/uL (0.0-1.1) 0.1 x10^3/uL (0.0-1.1) Eosinophils # (Auto) 0.3 x10^3/uL (0.0-0.7) 0.0 x10^3/uL (0.0-0.7) Basophils # (Auto) 0.1 x10^3/uL (0.0-0.2) 0.0 x10^3/uL (0.0-0.2) Segmented Neutrophils % 72 % (35-66) Band Neutrophils % 8 % (0-9) Lymphocytes % 10 % (24-48) Atypical Lymphocytes % (Manual) 4 % (0-0) Monocytes % 4 % (0-10) Eosinophils % 2 % (0-5) Platelet Estimate Adequate (ADEQUATE) Prothrombin Time 17.2 SEC (11.7-14.0) Prothromb Time International Ratio 1.5 (0.8-1.1) Activated Partial Thromboplast Time 34 SEC (24-38) Sodium Level 134 mmol/L (136-145) 138 mmol/L (136-145) Potassium Level 4.4 mmol/L (3.5-5.1) 4.6 mmol/L (3.5-5.1) Chloride Level 100 mmol/L (98-107) 97 mmol/L (98-107) Carbon Dioxide Level 25 mmol/L (21-32) 32 mmol/L (21-32) Anion Gap 9 (6-14) 9 (6-14) Blood Urea Nitrogen 26 mg/dL (7-20) 27 mg/dL (7-20) Creatinine 1.1 mg/dL (0.6-1.0) 1.5 mg/dL (0.6-1.0) Estimated GFR (Cockcroft-Gault) 46.9 32.8 BUN/Creatinine Ratio 24 (6-20) Glucose Level 162 mg/dL (70-99) 171 mg/dL (70-99) Calcium Level 9.0 mg/dL (8.5-10.1) 8.7 mg/dL (8.5-10.1) Magnesium Level 2.1 mg/dL (1.8-2.4) Total Bilirubin 0.8 mg/dL (0.2-1.0) Aspartate Amino Transf (AST/SGOT) 16 U/L (15-37) Alanine Aminotransferase (ALT/SGPT) 23 U/L (14-59) Alkaline Phosphatase 61 U/L (46-116) Troponin I High Sensitivity 12 ng/L (4-50) WS-Mim-Q-Type Natriuretic Peptide 1994 pg/mL (0-449) Total Protein 6.6 g/dL (6.4-8.2) Albumin 3.0 g/dL (3.4-5.0) Albumin/Globulin Ratio 0.8 (1.0-1.7) Thyroid Stimulating Hormone (TSH) 3.586 uIU/mL (0.358-3.74) Influenza Type A Antigen Negative (NEGATIVE) Influenza Type B Antigen Negative (NEGATIVE) SARS-CoV-2 Antigen (Rapid) Negative (NEGATIVE) Hemoglobin A1c 5.7 % (4.8-5.6) Medications Active Scripts Medications Dose Route/Sig Max Daily Dose Days Date Category Prednisone 20 Mg Tablet 2 Tab PO DAILY 03/16/22 Rx Tylenol (Acetaminophen) 325 Mg Tablet 2 Tab PO PRN Q8HRS PRN 02/11/19 Reported Vitamin D (Cholecalciferol (Vitamin D3)) 5,000 Unit Capsule 1,000 Unit PO DAILY 02/11/19 Reported Inderal Xl (Propranolol Hcl) 120 Mg Cap.er.24h 2 Cap PO DAILY 02/11/19 Reported Xarelto (Rivaroxaban) 20 Mg Tablet 20 Mg PO DAILY 05/03/17 Reported Simvastatin 10 Mg Tablet 1 Tab PO QHS 05/03/17 Reported Levothyroxine Sodium 112 Mcg Tablet 1 Tab PO DAILY 05/03/17 Reported Impression . 1. Dyspnea with acute hypoxic respiratory failure secondary to multifactorial etiologies including atrial fibrillation with rapid ventricular response and bronchospasm. 2. Bronchospasm. Likely triggered by acute bronchitis. No known history of asthma and no significant tobacco use. Chest x-ray without any obvious congestive heart failure. She may have developed reactive airway disease in her adult life. 3. Atrial fibrillation with rapid ventricular response, now rate controlled. 4. Chronic use of Xarelto for atrial fibrillation. Plan . 1. Discussed with the patient and the son and Dr. Fowler. 2. Continue present oxygen, keep saturation 92% and above. 3. Continue with IV Solu-Medrol. Taper dose. 4. Continue with DuoNebs and Pulmicort. 5. PFTs as an outpatient. 6. Continue guaifenesin. JOSE DELGADO MD March 28, 2022 10:27
--- NOTE | 2022-03-28 10:32 | PDOC ---
KENTON SINGH PROFESSOR OF PHYSICS 03/28/22 1032: CARDIO Progress Notes Date and Time Date of Service 03/28/2022 Time of Evaluation 0925 Subjective Subjective: No Chest Pain, No shortness of breath, No Palpitations Vitals Vitals Vital Signs Date Time Temp Pulse Resp B/P (MAP) Pulse Ox O2 Delivery O2 Flow Rate FiO2 03/28/22 08:10 87 173/90 03/28/22 08:00 Nasal Cannula 2.0 03/28/22 07:18 97 03/28/22 07:00 97.4 20 97.4 Weight Weight [ ] Input and Output Intake and Output Intake and Output 03/28/22 07:00 Intake Total 600 ml Output Total 950 ml Balance -350 ml Intake Oral 600 ml Output Urine Total 950 ml # Voids 1 Physical Exam HEENT: Neck Supple W Full Motion Chest: Symmetric LUNGS: Other (faint wheeze diffused) Heart: irregularly irregular (AFIB) Abdomen: Soft N/T Extremities: No Edema, No Calf Tenderness Neurology: alert, oriented, follow commands Assessment Assessment 1. AFIB RVR: appears to be chronic. RVR likely potentiated by bronchospasm and intractable coughing spells. Rate still at 100-120 2. Acute on chronic diastolic CHF: compensated. Precipitated by pulmonary issue and RVR 3. MAREN 4. Hypertension: controlled 5. Hyperlipidemia 6. Hypothyroidism: on replacement 7. Obesity 8. Acute bronchitis 9. Hyperglycemia: per PCP Recommendations 1. Hold any BB as she continues to have audible wheezing. Increase cardizme to 240 mg. x1 digoxin. BMP today 2. Continue xarelto for stroke prevention 3. Supportive care. No further cardiac testing 4. Continue pulmonary optimization per pulmonary Justicifation of Admission Dx: Justifications for Admission: Justification of Admission Dx: Yes GISSELLE MOTT MD 03/29/22 0759: CARDIO Progress Notes Plan Plan Late entry for 03/28/2022 Patient seen and examined. I agree with above nurse practitioner note KENTON SINGH PROFESSOR OF PHYSICS March 28, 2022 10:32 GISSELLE MOTT MD March 29, 2022 07:59
[2022-03-28] MEDS ORDERED: DIGOXIN IV 500 MCG/2 ML AMPUL. IV ONE (10:45)
[2022-03-28 10:48] LABS: CALCIUM 8.8 mg/dL (8.5-10.1); CREATININE 1.1 mg/dL (0.6-1.0); GFR 46.9; POTASSIUM 4.2 mmol/L (3.5-5.1)
[2022-03-28 11:00] VITALS: BP 129/89
[2022-03-28 15:00] VITALS: BP 115/69
--- NOTE | 2022-03-28 16:22 | NUR ---
SS following up with discharge planning. SS reviewed pt chart and discussed with pt RN. Pt is currently requiring oxygen at two liters nasal canula. COVID19 negative. PT/OT recommended detention unit. Pt's family requesting referral to [facility], ; fax [phone]. Referral sent as requested. Script received for hospital bed and sent with clinical to [facility], ; fax [phone]. SS will continue to follow for discharge planning. Addendum: 03/28/22 at 1652 by SYLVIE JORGENSEN SS Pt accepted at [facility] and can admit tomorrow at 1300. Physician notified.
[2022-03-28 19:21] VITALS: BP 141/88
--- NOTE | 2022-03-28 19:30 | NUR ---
Pt without c/o pain assessment completed vss poc explained will resume care and continue to monitor pt. Call light in reach.
[2022-03-28 22:15] VITALS: BP 147/77
[2022-03-28] MEDS: MONTELUKAST SODIUM 10 MG TABLET. PO SCH (22:24)
[2022-03-28] MEDS: ACETAMINOPHEN 325 MG TABLET. PO PRN (22:24)
[2022-03-29 02:23] VITALS: BP 164/91
[2022-03-29] MEDS: LEVOTHYROXINE 112 MCG TABLET PO SCH (05:57)
[2022-03-29] MEDS: methylPREDNISolone SOD SUCC PF 40 MG/ML VIAL. IV SCH (05:57)
[2022-03-29 06:25] VITALS: BP 136/71
[2022-03-29] MEDS: BUDESONIDE 0.5 MG/2 ML NEBU. NEB SCH (07:42)
[2022-03-29] MEDS: IPRATRPIUM/ALBUTEROL 0.5/2.5MG 3 ML NEBU. NEB SCH ×2 (07:42→11:45)
[2022-03-29] MEDS ORDERED: RIVAROXABAN 15 MG TABLET. PO SCH (09:00)
--- NOTE | 2022-03-29 09:00 | PDOC ---
KENTON SINGH LICENSED BONDSMAN 03/29/22 0900: CARDIO Progress Notes Date and Time Date of Service 03/29/2022 Time of Evaluation 0950 Subjective Subjective: No Chest Pain, No shortness of breath, No Palpitations Vitals Vitals Vital Signs Date Time Temp Pulse Resp B/P (MAP) Pulse Ox O2 Delivery O2 Flow Rate FiO2 03/29/22 07:45 97 Nasal Cannula 2.0 03/29/22 06:25 97.6 78 16 136/71 (92) 97.6 Weight Weight [ ] Input and Output Intake and Output Intake and Output 03/29/22 07:00 Intake Total 910 ml Output Total 600 ml Balance 310 ml Intake Oral 910 ml Output Urine Total 600 ml # Voids 1 Laboratory Labs Laboratory Tests Test 03/28/22 10:30 03/28/22 10:35 Sodium Level 138 mmol/L (136-145) Potassium Level 4.2 mmol/L (3.5-5.1) Chloride Level 100 mmol/L (98-107) Carbon Dioxide Level 29 mmol/L (21-32) Anion Gap 9 (6-14) Blood Urea Nitrogen 29 mg/dL (7-20) Creatinine 1.1 mg/dL (0.6-1.0) Estimated GFR (Cockcroft-Gault) 46.9 Glucose Level 179 mg/dL (70-99) Calcium Level 8.8 mg/dL (8.5-10.1) Coronavirus (COVID-19)(PCR) Not detected (NOT DETECTD) Physical Exam HEENT: Neck Supple W Full Motion Chest: Symmetric LUNGS: Other (faint wheeze diffused, upper rhonchi) Heart: irregularly irregular (AFIB) Abdomen: Soft N/T Extremities: No Calf Tenderness, Other (trace to 1+ bilateral LE pitting edema) Neurology: alert, oriented, follow commands Assessment Assessment 1. AFIB RVR: appears to be chronic. RVR likely potentiated by bronchospasm and intractable coughing spells. Rate controlled 2. Acute on chronic diastolic CHF: compensated. Precipitated by pulmonary issue and RVR 3. MAREN: better 4. Hypertension: controlled 5. Hyperlipidemia 6. Hypothyroidism: on replacement 7. Obesity 8. Acute bronchitis 9. Hyperglycemia: per PCP Recommendations 1. Continue cardizem CD at 240 mg daily 2. Continue xarelto for stroke prevention 3. Supportive care. No further cardiac testing 4. Continue pulmonary optimization per pulmonary Justicifation of Admission Dx: Justifications for Admission: Justification of Admission Dx: Yes GISSELLE MOTT MD 03/30/22 180: CARDIO Progress Notes Plan Plan Late entry for 03/29/2022 Patient seen and examined. Agree with above nurse practitioner note KENTON SINGH APRN March 29, 2022 09:00 GISSELLE MOTT MD March 30, 2022 18:02
[2022-03-29] MEDS ORDERED: FAMO-63 PO (09:06)
[2022-03-29] MEDS ORDERED: GUAI5SYR PO (09:06)
[2022-03-29] MEDS ORDERED: PRED20TA PO (09:06)
[2022-03-29] MEDS ORDERED: RIVA15TA PO (09:06)
[2022-03-29] MEDS ORDERED: MONT10TA49 PO (09:06)
[2022-03-29] MEDS ORDERED: IPRA3AMP29 NEB (09:06)
[2022-03-29] MEDS ORDERED: DILT240C33 PO (09:06)
--- NOTE | 2022-03-29 09:07 | SNU/HH DC ---
DISCHARGE ORDERS DISCHARGE INFORMATION: DISCHARGE DATE: March 29, 2022 FINAL DIAGNOSIS Problems Medical Problems: (1) Atrial fibrillation with RVR Status: Acute (2) Bronchospasm Status: Acute (3) Failure of outpatient treatment Status: Acute CONDITION ON DISCHARGE: Stable CODE STATUS: Code Status: Full LONGTERM: SNF STAY <30 DAYS: Yes POST DISCHARGE ORDERS: ACTIVITY ORDERS: Activity as tolerated WEIGHT BEARING STATUS: As tolerated DIET AFTER DISCHARGE: Cardiac CHECKS AFTER DISCHARGE: CHECKS AFTER DISCHARGE: Check blood press - daily, Check your Temp as needed, Weigh Yourself Daily FOLLOW-UP: Additional Instructions: Call to follow up with cardiology [phone] [facility], [address] [place] [address] Stop taking propranolol and start taking Cardizem do not continue propranolol after discharge. Reduce your dose of Xarelto from 20 mg a day to 15 mg a day. TREATMENT/EQUIPMENT ORDERS: ADAPTIVE EQUIPMENT NEEDED: None RESPIRATORY EQUIPMENT NEEDED: Nebulizer Physical Therapy For: Evalulation/Treatment Occupational Therapy For: Evaluation/Treatment DISCHARGE MEDICATIONS: Home Meds Active Scripts Famotidine (PEPCID) 20 Mg Tablet, 20 MG PO HS for Gastritisi for 30 Days, #30 TAB Prov:BRIDGETTE MO MD 03/29/22 Montelukast Sodium (MONTELUKAST SODIUM TABLET ) 10 Mg Tablet, 10 MG PO QHS for allergies for 30 Days, #30 TAB Prov:BRIDGETTE MO MD 03/29/22 Guaifenesin/Dextromethorphan (GUAIFENESIN DM SYRUP) 5 Ml Syrup, 10 ML PO PRN Q6HRS PRN for COUGH for 30 Days, #30 MISC Prov:BRIDGETTE MO MD 03/29/22 Diltiazem HCl (Diltiazem 24Hr Cd) 240 Mg Cap.er.24h, 240 MG PO DAILY for Afib/Headache for 30 Days, #30 CAP.SR 5 Refills Prov:BRIDGETTE MO MD 03/29/22 Rivaroxaban (XARELTO) 15 Mg Tablet, 15 MG PO DAILY for afib for 30 Days, #30 TAB 5 Refills Prov:BRIDGETTE MO MD 03/29/22 Ipratropium/Albuterol Sulfate (DUONEB 0.5-3(2.5) MG/3 ML) 3 Ml Ampul.neb, 3 ML NEB RTQID for bronchitis for 30 Days, #120 EACH Prov:BRIDGETTE MO MD 03/29/22 Prednisone (PREDNISONE) 20 Mg Tablet, 1 TAB PO DAILY for Bronchitis for 5 Days, #5 TAB Prov:BRIDGETTE MO MD 03/29/22 Reported Medications Acetaminophen (TYLENOL) 325 Mg Tablet, 2 TAB PO PRN Q8HRS PRN for PAIN, #30 TAB 02/11/19 Cholecalciferol (Vitamin D3) (Vitamin D) 5,000 Unit Capsule, 1000 UNIT PO DAILY for supplement, CAP 02/11/19 Simvastatin (SIMVASTATIN) 10 Mg Tablet, 1 TAB PO QHS, #30 TAB 5 Refills 05/03/17 Levothyroxine Sodium (LEVOTHYROXINE SODIUM) 112 Mcg Tablet, 1 TAB PO DAILY, #30 TAB 5 Refills 05/03/17 Discontinued Reported Medications Propranolol Hcl (INDERAL XL) 120 Mg Cap.er.24h, 2 CAP PO DAILY for headache, CAP.SR 02/11/19 Rivaroxaban (XARELTO) 20 Mg Tablet, 20 MG PO DAILY, TAB 05/03/17 BRIDGETTE MO MD March 29, 2022 09:07
--- NOTE | 2022-03-29 09:16 | PDOC ---
[employer] PROGRESS NOTE Date of Service DOS: DATE: 03/29/22 TIME: 09:07 Chief Complaint Chief Complaint Acute dyspnea - combination of bronchitis, will treat more aggressively, IV steroids, nebs. Treat CHF as well, IV lasix AFIB - rate not well controlled initially, may need to add digoxin IV overnight. Consult cardiology. Need alternative beta-iza. H/o MVP, may be worsening a cardiac wheeze Acute on chronic diastolic CHF - IV diuresis, follow BMP, mag, consult cardiology h/o migraines - on maxalt, inderal Hypothyroidism - cont levothyroxine FEN - Cardiac diet PPX - xarelto FULL CODE Dispo - inpatient History of Present Illness History of Present Illness Ms Flood is an 87 year old female with PMHx A-Fib, High Cholesterol, Hypothyroid, mitral prolapse presenting to the emergency department for evaluation of worsening shortness of breath over the past week and a half. She has had progressively worsening wheezing, non-productive cough and has some associated orthopnea, dyspnea on exertion and conversational dyspnea. She says that she has seen her doctor for this 2 times in last week she was put on an antibiotic and a steroid but she has finished both and she has also been using her nebulizer 3-4 times a day but says that she feels that she is continuing to get worse. No nausea vomiting diarrhea. EKG afib rate approximately 126bpm, no ST elevations or TWI. She was given breathing treatments in ED with minimal improvement. Added pulmicort nebulizers, IV furosemide and admitted for further care. After initial nebs her HR accelerated, improved with IV metoprolol. IV cardizem is not available at this time. 03/27: Creatinine up to 1.5. Wheezing is still present. Still in A. fib blood pressure is elevated as well. Discussed with and son at bedside need to continue aggressive nebulizers 03/28: Still in A. fib. Still hypoxic has a dry mouth. Very weak has been recommended to go to prison. Discussed with family bedside 03/29: A. fib rate controlled better now on diltiazem. O2 saturations 98% on 1 L. Likely does not need O2. She makes note that she is a DO NOT RESUSCITATE. All questions answered ready to discharge to rehab center [place] Vitals/I&O Vitals/I&O: Vital Signs Date Time Temp Pulse Resp B/P (MAP) Pulse Ox O2 Delivery O2 Flow Rate FiO2 03/29/22 07:45 97 Nasal Cannula 2.0 03/29/22 06:25 97.6 78 16 136/71 (92) 97.6 I & O 03/28/22 03/28/22 03/29/22 15:00 23:00 07:00 Intake Total 580 ml 280 ml 50 ml Output Total 600 ml Balance 580 ml 280 ml -550 ml Physical Exam General: Alert, Oriented X3, Cooperative, No acute distress Heart: Other (AFIB, 2/6 systolic murmur to LLS border) Lungs: Wheezing (Mild.) Abdomen: Soft, No tenderness Extremities: No cyanosis, Other (LE Varicosities) Skin: No breakdown, No significant lesion Labs Labs: Laboratory Tests Test 03/28/22 10:30 03/28/22 10:35 Sodium Level 138 mmol/L (136-145) Potassium Level 4.2 mmol/L (3.5-5.1) Chloride Level 100 mmol/L (98-107) Carbon Dioxide Level 29 mmol/L (21-32) Anion Gap 9 (6-14) Blood Urea Nitrogen 29 mg/dL (7-20) Creatinine 1.1 mg/dL (0.6-1.0) Estimated GFR (Cockcroft-Gault) 46.9 Glucose Level 179 mg/dL (70-99) Calcium Level 8.8 mg/dL (8.5-10.1) Coronavirus (COVID-19)(PCR) Not detected (NOT DETECTD) Assessment and Plan Assessmemt and Plan Problems Medical Problems: (1) Atrial fibrillation with RVR Status: Acute (2) Bronchospasm Status: Acute (3) Failure of outpatient treatment Status: Acute Comment Review of Relevant I have reviewed the following items forrest (where applicable) has been applied. Medications: Current Medications Medications (Trade) Dose Ordered Sig/Radha Route PRN Reason Start Time Stop Time Status Last Admin Dose Admin Methylprednisolone Sodium Succinate (SOLU-Medrol 40MG VIAL) 40 mg Q8HRS IV 03/28/22 14:00 03/29/22 05:57 Digoxin (Lanoxin) 250 mcg 1X ONCE IV 03/28/22 10:45 03/28/22 10:46 DC 03/28/22 11:37 Justifications for Admission Other Justification RIFFEL,CHRISTOPHER S MD March 29, 2022 09:16
--- NOTE | 2022-03-29 09:48 | PDOC3 ---
Discharge Summary Visit Information Date of Admission: March 26, 2022 Date of Discharge: March 29, 2022 Admitting Diagnosis: Afib with RVR Final Diagnosis Problems Medical Problems: (1) Atrial fibrillation with RVR Status: Acute (2) Bronchospasm Status: Acute (3) Failure of outpatient treatment Status: Acute Brief Hospital Course Allergies Allergies Coded Allergies Type Severity Reaction Last Updated Verified No Known Drug Allergies 03/16/22 No Vital Signs Vital Signs Date Time Temp Pulse Resp B/P (MAP) Pulse Ox O2 Delivery O2 Flow Rate FiO2 03/29/22 07:45 97 Nasal Cannula 2.0 03/29/22 06:25 97.6 78 16 136/71 (92) 97.6 Lab Results Laboratory Tests Test 03/28/22 10:30 03/28/22 10:35 Sodium Level 138 mmol/L (136-145) Potassium Level 4.2 mmol/L (3.5-5.1) Chloride Level 100 mmol/L (98-107) Carbon Dioxide Level 29 mmol/L (21-32) Anion Gap 9 (6-14) Blood Urea Nitrogen 29 mg/dL (7-20) Creatinine 1.1 mg/dL (0.6-1.0) Estimated GFR (Cockcroft-Gault) 46.9 Glucose Level 179 mg/dL (70-99) Calcium Level 8.8 mg/dL (8.5-10.1) Coronavirus (COVID-19)(PCR) Not detected (NOT DETECTD) Laboratory Tests Test 03/28/22 10:30 03/28/22 10:35 Sodium Level 138 mmol/L (136-145) Potassium Level 4.2 mmol/L (3.5-5.1) Chloride Level 100 mmol/L (98-107) Carbon Dioxide Level 29 mmol/L (21-32) Anion Gap 9 (6-14) Blood Urea Nitrogen 29 mg/dL (7-20) Creatinine 1.1 mg/dL (0.6-1.0) Estimated GFR (Cockcroft-Gault) 46.9 Glucose Level 179 mg/dL (70-99) Calcium Level 8.8 mg/dL (8.5-10.1) Coronavirus (COVID-19)(PCR) Not detected (NOT DETECTD) Brief Hospital Course Ms. Fletcher is a 87 old [sex] who presented with [ ] Discharge Information Scheduled Cholecalciferol (Vitamin D3) (Vitamin D) 5,000 Unit Capsule, 1,000 UNIT PO DAILY for supplement, (Reported) Entered as Reported by: KIKO QUINONES on 02/11/192054 Diltiazem HCl (Diltiazem 24Hr Cd) 240 Mg Cap.er.24h, 240 MG PO DAILY for Afib/Headache for 30 Days, #30 Ref 5 Prescribed by: BRIDGETTE MO MD on 03/29/22905 Famotidine (Pepcid) 20 Mg Tablet, 20 MG PO HS for Gastritisi for 30 Days, #30 Prescribed by: BRIDGETTE MO MD on 03/29/22 09 Ipratropium/Albuterol Sulfate (Duoneb 0.5-3(2.5) Mg/3 Ml) 3 Ml Ampul.neb, 3 ML NEB RTQID for bronchitis for 30 Days, #120 Prescribed by: BRIDGETTE MO MD on 03/29/22905 Levothyroxine Sodium (Levothyroxine Sodium) 112 Mcg Tablet, 1 TAB PO DAILY, #30 Ref 5 (Reported) Entered as Reported by: AMANDO LAST on 05/03/17 0816 Last Action: Continued on 03/26/222244 by BRIDGETTE MO MD Montelukast Sodium (Montelukast Sodium Tablet ) 10 Mg Tablet, 10 MG PO QHS for allergies for 30 Days, #30 Prescribed by: BRIDGETTE MO MD on 03/29/22905 Prednisone (Prednisone) 20 Mg Tablet, 1 TAB PO DAILY for Bronchitis for 5 Days, #5 Prescribed by: BRIDGETTE MO MD on 03/29/22905 Rivaroxaban (Xarelto) 15 Mg Tablet, 15 MG PO DAILY for afib for 30 Days, #30 Ref 5 Prescribed by: BRIDGETTE MO MD on 03/29/22905 Simvastatin (Simvastatin) 10 Mg Tablet, 1 TAB PO QHS, #30 Ref 5 (Reported) Entered as Reported by: AMANDO LAST on 05/03/17 0816 Scheduled PRN Acetaminophen (Tylenol) 325 Mg Tablet, 2 TAB PO PRN Q8HRS PRN for PAIN, #30 (Reported) Entered as Reported by: KIKO QUINONES on 02/11/192054 Guaifenesin/Dextromethorphan (Guaifenesin Dm Syrup) 5 Ml Syrup, 10 ML PO PRN Q6HRS PRN for COUGH for 30 Days, #30 Prescribed by: BRIDGETTE MO MD on 03/29/22 0906 Discontinued Medications Propranolol Hcl (Inderal Xl) 120 Mg Cap.er.24h, 2 CAP PO DAILY for headache, (Reported) Entered as Reported by: KIKO QUINONES on 02/11/192054 Last Action: Converted on 03/26/222244 by BRIDGETTE MO MD Rivaroxaban (Xarelto) 20 Mg Tablet, 20 MG PO DAILY, (Reported) Entered as Reported by: AMANDO LAST on 05/03/17 0816 Last Action: Converted on 03/26/222244 by BRIDGETTE MO MD Justicifation of Admission Dx: Justifications for Admission: Justification of Admission Dx: Yes BRIDGETTE MO MD March 29, 2022 09:48
--- NOTE | 2022-03-29 09:50 | PDOC ---
PULMONARY PROGRESS NOTES DATE: 03/29/22 TIME: 09:50 Subjective Patient more short of air, back to baseline never smoked Vitals Vital Signs Date Time Temp Pulse Resp B/P (MAP) Pulse Ox O2 Delivery O2 Flow Rate FiO2 03/29/22 09:41 78 136/71 03/29/22 07:45 97 Nasal Cannula 2.0 03/29/22 06:25 97.6 16 97.6 General: Alert, No acute distress Lungs: Wheezing (Mild.) Cardiovascular: S1 Abdomen: Soft Neuro Exam: Alert Extremities: No Edema Skin: Warm Labs Laboratory Tests Test 03/28/22 10:30 03/28/22 10:35 Sodium Level 138 mmol/L (136-145) Potassium Level 4.2 mmol/L (3.5-5.1) Chloride Level 100 mmol/L (98-107) Carbon Dioxide Level 29 mmol/L (21-32) Anion Gap 9 (6-14) Blood Urea Nitrogen 29 mg/dL (7-20) Creatinine 1.1 mg/dL (0.6-1.0) Estimated GFR (Cockcroft-Gault) 46.9 Glucose Level 179 mg/dL (70-99) Calcium Level 8.8 mg/dL (8.5-10.1) Coronavirus (COVID-19)(PCR) Not detected (NOT DETECTD) Laboratory Tests Test 03/28/22 10:30 03/28/22 10:35 Sodium Level 138 mmol/L (136-145) Potassium Level 4.2 mmol/L (3.5-5.1) Chloride Level 100 mmol/L (98-107) Carbon Dioxide Level 29 mmol/L (21-32) Anion Gap 9 (6-14) Blood Urea Nitrogen 29 mg/dL (7-20) Creatinine 1.1 mg/dL (0.6-1.0) Estimated GFR (Cockcroft-Gault) 46.9 Glucose Level 179 mg/dL (70-99) Calcium Level 8.8 mg/dL (8.5-10.1) Coronavirus (COVID-19)(PCR) Not detected (NOT DETECTD) Medications Active Scripts Medications Dose Route/Sig Max Daily Dose Days Date Category Prednisone 20 Mg Tablet 2 Tab PO DAILY 03/16/22 Rx Tylenol (Acetaminophen) 325 Mg Tablet 2 Tab PO PRN Q8HRS PRN 02/11/19 Reported Vitamin D (Cholecalciferol (Vitamin D3)) 5,000 Unit Capsule 1,000 Unit PO DAILY 02/11/19 Reported Inderal Xl (Propranolol Hcl) 120 Mg Cap.er.24h 2 Cap PO DAILY 02/11/19 Reported Xarelto (Rivaroxaban) 20 Mg Tablet 20 Mg PO DAILY 05/03/17 Reported Simvastatin 10 Mg Tablet 1 Tab PO QHS 05/03/17 Reported Levothyroxine Sodium 112 Mcg Tablet 1 Tab PO DAILY 05/03/17 Reported Impression . 1. Dyspnea with acute hypoxic respiratory failure secondary to multifactorial etiologies including atrial fibrillation with rapid ventricular response and bronchospasm. 2. Bronchospasm. Likely triggered by acute bronchitis. No known history of asthma and no significant tobacco use. Chest x-ray without any obvious congestive heart failure. She may have developed reactive airway disease in her adult life. 3. Atrial fibrillation with rapid ventricular response, now rate controlled. 4. Chronic use of Xarelto for atrial fibrillation. Plan . Discharge home today, does not require oxygen Patient never smoked Possible allergies No history of asthma Gave the daughter my business card, follow-up as needed JOHANN RICH MD March 29, 2022 09:50
--- NOTE | 2022-03-29 10:49 | NUR ---
SS following up with discharge planning. SS reviewed pt chart and discussed with pt RN. Pt is currently requiring oxygen at two liters nasal canula. COVID19 negative. PT/OT recommended snf unit. Pt accepted at [facility], ; fax [phone]. Discharge orders received and sent to [facility]. Pt will discharge today and go to [facility] at 1300. Admitting facility to provide transportation. Pt, pt's RN, and pt's family notified.
[2022-03-29 11:00] VITALS: BP 129/86
--- NOTE | 2022-03-29 13:15 | NUR ---
pt is discharged [facility] via medical transportation at 1315 via wheelchair. pt is in stable condition. pt has all belongings with her. gave report to keith and he stated he had no further questions for me. discharge packet and outside of the hospital DNR form given to transportation to give to facility.
== END 2022-03-29 13:14 | DRG 291 ==
LOC: ER 17:36 → OBSVTOIN 19:53 → 6 SOUTH 19:53
PROVIDERS: ADMIT Internal Medicine; ATTEND Internal Medicine
DX: I11.0 Hypertensive heart disease with heart failure (principal); I50.33 Acute on chronic diastolic (congestive) heart failure; J96.01 Acute respiratory failure with hypoxia; N17.9 Acute kidney failure, unspecified; E03.9 Hypothyroidism, unspecified; E66.9 Obesity, unspecified; E78.00 Pure hypercholesterolemia, unspecified; E78.5 Hyperlipidemia, unspecified; I34.1 Nonrheumatic mitral (valve) prolapse; I48.91 Unspecified atrial fibrillation; J20.9 Acute bronchitis, unspecified; M85.80 Other specified disorders of bone density and structure, unspecified site; Z66 Do not resuscitate; Z79.01 Long term (current) use of anticoagulants; Z82.49 Family history of ischemic heart disease and other diseases of the circulatory system; Z90.710 Acquired absence of both cervix and uterus; G43.909 Migraine, unspecified, not intractable, without status migrainosus; M19.90 Unspecified osteoarthritis, unspecified site; Z20.822 Contact with and (suspected) exposure to COVID-19; Z68.33 Body mass index [BMI] 33.0-33.9, adult; R73.9 Hyperglycemia, unspecified
CPT/HCPCS: 36415; 71045; 80048; 80053; 83036; 83735; 83880; 84443; 84484; 85007; 85025; 85610; 85730; 87428; 93005; 94640; 94760; 96374; 96375; J1160; J1644; J1940; J2060; J2270; J2920; J2930; J3490; U0003; 97110-GP; 97116-GP; 97530-GO; 97530-GP; 97535-GO; 99285-25; G0378; J7626